=== PATIENT | male | born 1975 | race Hispanic/Latino ===

== ENCOUNTER 2023-02-26 09:46 | Inpatient (IN) | payer OTHER ==
[~2023-02-26] VITALS: Ht 172.7 cm; Wt 73.5 kg
[2023-02-26] MEDS ORDERED: 0.9%NACL 1000ML 1,000 ML IV ONE (10:30)
[2023-02-26 10:45] LABS: APPEARANCE,URINE CLEAR (CLEAR); BILIRUBIN,URINE NEGATIVE (NEGATIVE); COLOR,URINE LIGHT-YELLOW (YELLOW); GLUCOSE, URINE (UA) 500 mg/dL (NEGATIVE); KETONES,URINE NEGATIVE (NEGATIVE); LEUKOCYTE ESTERASE ,URINE NEGATIVE Leu/uL (NEGATIVE); NITRATE,URINE NEGATIVE (NEGATIVE); OCCULT BLOOD,URINE SMALL (NEGATIVE); PROTEIN,URINE 600 mg/dL (NEGATIVE); UROBILINOGEN,URINE 0.2 mg/dL (0.2-1.0)
[2023-02-26 10:48] LABS: BASOPHILS % (AUTO) 0.6 % (0.0-5.0); EOSINOPHILS % (AUTO) 4.7 % (0.0-8.0); HEMATOCRIT 29.6 % (42-54); LYMPHOCYTES % (AUTO) 28.1 % (21.0-51.0); MEAN CORPUSCULAR HEMOGLOBIN 30.4 pg (27.0-33.0); MEAN CORPUSCULAR HGB CONC 32.8 g/dL (32.0-36.0); MEAN CORPUSCULAR VOLUME 92.8 fL (79-99); MONOCYTES % (AUTO) 7.5 % (3.0-13.0); NEUTROPHILS % (AUTO) 58.7 % (40.0-77.0); PLATELET COUNT (AUTO) 235 K/uL (130-400); RED BLOOD CELL COUNT(AUTO) 3.19 MIL/uL (4.50-6.20); RED CELL DISTRIBUTION WIDTH 13.9 % (11.0-15.5); WHITE BLOOD COUNT (AUTO) 5.1 K/uL (4.8-10.8)
[2023-02-26 10:58] LABS: MUCUS,URINE RARE LPF (None Seen); RBC,URINE 0-1 /HPF (0-1); SQUAMOUS EPITHELIAL CELL,UR RARE /HPF (0-2)
[2023-02-26 11:08] LABS: ALBUMIN 1.9 g/dL (3.5-5.0); POTASSIUM 3.7 mmol/L (3.5-5.1)
[2023-02-26 11:10] LABS: CREATININE 8.7 mg/dL (0.5-1.5)
[2023-02-26] MEDS ORDERED: POTASSIUM CHLORIDE 20MEQ/100ML 100 ML IV PRN (12:00)
[2023-02-26] MEDS ORDERED: POTASSIUM CHLORIDE 10% ELIXIR 20 MEQ/15 ML UDCUP PO PRN (12:00)
[2023-02-26] MEDS ORDERED: KCL 20 MEQ ERTAB PO PRN (12:00)
[2023-02-26] MEDS: 0.9%NACL 1000ML 1,000 ML IV SCH (12:43)
[2023-02-26 15:20] VITALS: BP 181/87
[2023-02-26] MEDS ORDERED: HYDRALAZINE 20MG/ML VIAL IV PRN (18:00)
[2023-02-26 18:34] LABS: % IRON SATURATION 27.9 % (30-44)
[2023-02-26] MEDS: INSULIN HUMULIN R 100 UNIT/ML 3ML SQ SCH ×2 (19:00→21:00)
[2023-02-26 20:00] VITALS: BP 154/79
[2023-02-26] MEDS: METRONIDAZOLE 250 MG TABLET PO SCH (20:19)
[2023-02-27] VITALS (7 sets, daily range): BP systolic 130–196; BP diastolic 70–92
[2023-02-27] MEDS: 0.9%NACL 1000ML 1,000 ML IV SCH (01:24)
[2023-02-27] MEDS: METRONIDAZOLE 250 MG TABLET PO SCH ×4 (02:27→23:56)
[2023-02-27 05:18] LABS: BASOPHILS % (AUTO) 0.7 % (0.0-5.0); HEMATOCRIT 28.3 % (42-54); LYMPHOCYTES % (AUTO) 28.6 % (21.0-51.0); MEAN CORPUSCULAR HEMOGLOBIN 30.2 pg (27.0-33.0); MEAN CORPUSCULAR HGB CONC 32.9 g/dL (32.0-36.0); MEAN CORPUSCULAR VOLUME 91.9 fL (79-99); MONOCYTES % (AUTO) 5.7 % (3.0-13.0); NEUTROPHILS % (AUTO) 59.8 % (40.0-77.0); PLATELET COUNT (AUTO) 249 K/uL (130-400); RED BLOOD CELL COUNT(AUTO) 3.08 MIL/uL (4.50-6.20); RED CELL DISTRIBUTION WIDTH 13.9 % (11.0-15.5); WHITE BLOOD COUNT (AUTO) 5.4 K/uL (4.8-10.8)
[2023-02-27 05:24] LABS: HEMOGLOBIN A1C 7.4 % (4.0-6.0)
[2023-02-27 05:44] LABS: ALBUMIN 1.8 g/dL (3.5-5.0); CREATININE 7.6 mg/dL (0.5-1.5); MAGNESIUM 1.5 mg/dL (1.80-2.40); POTASSIUM 3.8 mmol/L (3.5-5.1); TOTAL PROTEIN, SERUM 5.4 g/dL (6.0-8.3)
[2023-02-27] MEDS: INSULIN HUMULIN R 100 UNIT/ML 3ML SQ SCH ×4 (06:06→21:00)
[2023-02-27] MEDS: MAGNESIUM 2GM PREMIX 50ML 50 ML IV PRN (08:58)
[2023-02-27] MEDS ORDERED: FUROSEMIDE 40MG VIAL IV ONE (10:30)
[2023-02-27] MEDS ORDERED: Vitamin B Complex/Vit C/Folic Acid PO ONE (15:00)
[2023-02-27] MEDS: AMLODIPINE 5 MG TAB PO SCH (17:23)
[2023-02-27 18:32] LABS: HEMATOCRIT 26.5 % (42-54)
[2023-02-27 18:45] LABS: ALBUMIN 1.7 g/dL (3.5-5.0); CREATININE 7.6 mg/dL (0.5-1.5)
[2023-02-27 19:00] LABS: % IRON SATURATION 21.1 % (30-44)
[2023-02-27] MEDS: ACETAMINOPHEN 325 MG TAB PO PRN (20:13)
[2023-02-27] MEDS: ONDANSETRON 4MG INJ IVP PRN (23:56)
[2023-02-28] VITALS (26 sets, daily range): BP systolic 126–181; BP diastolic 58–93
[2023-02-28 04:22] LABS: HEPATITIS B SURFACE ANTIGEN Non-Reactive (Nonreactive)
[2023-02-28 04:58] LABS: BASOPHILS % (AUTO) 0.6 % (0.0-5.0); EOSINOPHILS % (AUTO) 5.1 % (0.0-8.0); HEMATOCRIT 29.9 % (42-54); LYMPHOCYTES % (AUTO) 26.9 % (21.0-51.0); MEAN CORPUSCULAR HEMOGLOBIN 30.1 pg (27.0-33.0); MEAN CORPUSCULAR HGB CONC 32.8 g/dL (32.0-36.0); MEAN CORPUSCULAR VOLUME 91.7 fL (79-99); NEUTROPHILS % (AUTO) 60.1 % (40.0-77.0); PLATELET COUNT (AUTO) 277 K/uL (130-400); RED BLOOD CELL COUNT(AUTO) 3.26 MIL/uL (4.50-6.20); RED CELL DISTRIBUTION WIDTH 13.6 % (11.0-15.5); WHITE BLOOD COUNT (AUTO) 6.6 K/uL (4.8-10.8)
[2023-02-28 05:14] LABS: INR 0.93 (0.85-1.15); PROTHROMBIN TIME 10.3 SEC (9.6-11.6)
[2023-02-28 05:16] LABS: PARTIAL THROMBOPLASTIN TIME 31.6 SEC (26.3-35.5)
[2023-02-28 05:38] LABS: CREATININE 7.7 mg/dL (0.5-1.5); MAGNESIUM 1.9 mg/dL (1.80-2.40); PHOSPHORUS 7.2 mg/dL (2.5-4.9); POTASSIUM 4.4 mmol/L (3.5-5.1); TOTAL PROTEIN, SERUM 5.8 g/dL (6.0-8.3); URIC ACID 7.1 mg/dL (2.6-7.2)
[2023-02-28] MEDS ORDERED: HEPARIN 1,000 UNIT VIAL ONE (07:20)
[2023-02-28] MEDS ORDERED: LIDOCAINE HCL 1% MDV 50ML VIAL ONE (07:20)
[2023-02-28] MEDS: INSULIN HUMULIN R 100 UNIT/ML 3ML SQ SCH ×4 (07:22→21:00)
[2023-02-28] MEDS ORDERED: AMLO5TAB4 PO (09:27)
[2023-02-28] MEDS ORDERED: FOLI0.8T53 PO (09:27)
[2023-02-28] MEDS: METRONIDAZOLE 250 MG TABLET PO SCH ×2 (09:33→17:32)
[2023-02-28] MEDS: AMLODIPINE 5 MG TAB PO SCH (09:33)
[2023-02-28] MEDS: ACETAMINOPHEN WITH CODEINE 1 TAB TAB PO PRN ×2 (11:40→17:53)
[2023-02-28] MEDS: HEPARIN 5,000 UNIT VIAL IRRIG SCH (16:20)
[2023-03-01] VITALS (19 sets, daily range): BP systolic 129–161; BP diastolic 65–77
[2023-03-01] MEDS: ACETAMINOPHEN WITH CODEINE 1 TAB TAB PO PRN ×3 (03:57→16:30)
[2023-03-01 04:41] LABS: BASOPHILS % (AUTO) 0.7 % (0.0-5.0); EOSINOPHILS % (AUTO) 4.8 % (0.0-8.0); HEMATOCRIT 28.7 % (42-54); LYMPHOCYTES % (AUTO) 26.9 % (21.0-51.0); MEAN CORPUSCULAR HEMOGLOBIN 29.8 pg (27.0-33.0); MEAN CORPUSCULAR HGB CONC 33.1 g/dL (32.0-36.0); MONOCYTES % (AUTO) 9.4 % (3.0-13.0); NEUTROPHILS % (AUTO) 57.7 % (40.0-77.0); PLATELET COUNT (AUTO) 287 K/uL (130-400); RED BLOOD CELL COUNT(AUTO) 3.19 MIL/uL (4.50-6.20); RED CELL DISTRIBUTION WIDTH 13.5 % (11.0-15.5); WHITE BLOOD COUNT (AUTO) 5.7 K/uL (4.8-10.8)
[2023-03-01 05:21] LABS: ALBUMIN 1.9 g/dL (3.5-5.0); CREATININE 6.2 mg/dL (0.5-1.5); POTASSIUM 3.8 mmol/L (3.5-5.1); TOTAL PROTEIN, SERUM 5.7 g/dL (6.0-8.3)
[2023-03-01] MEDS: INSULIN HUMULIN R 100 UNIT/ML 3ML SQ SCH ×4 (05:23→20:52)
[2023-03-01] MEDS: METRONIDAZOLE 250 MG TABLET PO SCH ×3 (05:25→23:24)
[2023-03-01] MEDS: HEPARIN 5,000 UNIT VIAL IJ SCH ×2 (12:00→16:07)
[2023-03-01] MEDS: AMLODIPINE 5 MG TAB PO SCH (16:30)
[2023-03-02] VITALS (22 sets, daily range): BP systolic 105–164; BP diastolic 49–82
[2023-03-02 05:23] LABS: HEMATOCRIT 28.9 % (42-54); MEAN CORPUSCULAR HGB CONC 32.5 g/dL (32.0-36.0); MEAN CORPUSCULAR VOLUME 92.3 fL (79-99); PLATELET COUNT (AUTO) 250 K/uL (130-400); RED BLOOD CELL COUNT(AUTO) 3.13 MIL/uL (4.50-6.20); RED CELL DISTRIBUTION WIDTH 13.8 % (11.0-15.5); WHITE BLOOD COUNT (AUTO) 6.8 K/uL (4.8-10.8)
[2023-03-02] MEDS ORDERED: GUAIFENESIN 600 MG TABLET.ER PO PRN (05:30)
[2023-03-02 05:39] LABS: CREATININE 5.7 mg/dL (0.5-1.5); MAGNESIUM 1.8 mg/dL (1.80-2.40); PHOSPHORUS 6.9 mg/dL (2.5-4.9); POTASSIUM 4.2 mmol/L (3.5-5.1)
[2023-03-02] MEDS: INSULIN HUMULIN R 100 UNIT/ML 3ML SQ SCH ×5 (06:05→20:33)
[2023-03-02] MEDS: METRONIDAZOLE 250 MG TABLET PO SCH ×3 (06:20→21:14)
[2023-03-02] MEDS: ACETAMINOPHEN WITH CODEINE 1 TAB TAB PO PRN ×3 (06:22→21:14)
[2023-03-02 06:37] LABS: EOSINOPHILS % (MANUAL) 4 % (1-6); LYMPHOCYTES % (MANUAL) 32 % (22-44); MAN.DIFF COMMENT-IMPRESSION MANUAL DIFFERENTIAL; PLATELET MORPHOLOGY COMMENT ADEQUATE; SEGMENTED NEUTROPHILS % 64 % (40-70)
[2023-03-02] MEDS: HEPARIN 5,000 UNIT VIAL IJ SCH (11:33)
[2023-03-02] MEDS: AMLODIPINE 5 MG TAB PO SCH (12:03)
[2023-03-02] MEDS: HEPARIN 5,000 UNIT VIAL IRRIG SCH (13:21)
[2023-03-02] MEDS: DIPHENHYDRAMINE HCL 25 MG CAPSULE PO PRN (21:14)
[2023-03-02 22:10] LABS: APPEARANCE,URINE CLOUDY (CLEAR); BILIRUBIN,URINE NEGATIVE (NEGATIVE); COLOR,URINE LIGHT-YELLOW (YELLOW); GLUCOSE, URINE (UA) 500 mg/dL (NEGATIVE); KETONES,URINE NEGATIVE (NEGATIVE); LEUKOCYTE ESTERASE ,URINE NEGATIVE Leu/uL (NEGATIVE); NITRATE,URINE NEGATIVE (NEGATIVE); OCCULT BLOOD,URINE SMALL (NEGATIVE); PH,URINE 6.5 (5.0-8.0); PROTEIN,URINE 600 mg/dL (NEGATIVE); UROBILINOGEN,URINE 0.2 mg/dL (0.2-1.0)
[2023-03-02 22:17] LABS: BACTERIA,URINE FEW /HPF (None Seen); RBC,URINE 0-1 /HPF (0-1); SQUAMOUS EPITHELIAL CELL,UR RARE /HPF (0-2); YEAST,URINE BUDDING FEW /HPF (None Seen)
[2023-03-02 22:41] LABS: PROTEIN,URINE RANDOM 959.5 mg/dL (0-11.9)
[2023-03-03 00:32] VITALS: BP 126/52
[2023-03-03 04:00] VITALS: BP 114/53
[2023-03-03] MEDS: METRONIDAZOLE 250 MG TABLET PO SCH ×3 (05:47→20:56)
[2023-03-03] MEDS: INSULIN HUMULIN R 100 UNIT/ML 3ML SQ SCH ×4 (05:55→20:44)
[2023-03-03 08:00] VITALS: BP 150/71
[2023-03-03] MEDS: AMLODIPINE 5 MG TAB PO SCH (09:36)
[2023-03-03] MEDS: DIPHENHYDRAMINE HCL 25 MG CAPSULE PO PRN (09:39)
[2023-03-03 12:00] VITALS: BP 132/74
[2023-03-03] MEDS: HEPARIN 5,000 UNIT VIAL IJ SCH (12:00)
[2023-03-03] MEDS: ACETAMINOPHEN WITH CODEINE 1 TAB TAB PO PRN (12:17)
[2023-03-03 16:00] VITALS: BP 118/67
[2023-03-03 20:16] VITALS: BP 129/61
[2023-03-04] VITALS (22 sets, daily range): BP systolic 124–153; BP diastolic 60–77
[2023-03-04 04:41] LABS: HEMATOCRIT 25.6 % (42-54); MEAN CORPUSCULAR HEMOGLOBIN 30.1 pg (27.0-33.0); MEAN CORPUSCULAR VOLUME 94.1 fL (79-99); RED BLOOD CELL COUNT(AUTO) 2.72 MIL/uL (4.50-6.20); RED CELL DISTRIBUTION WIDTH 13.6 % (11.0-15.5); WHITE BLOOD COUNT (AUTO) 7.4 K/uL (4.8-10.8)
[2023-03-04 04:54] LABS: CREATININE 6.9 mg/dL (0.5-1.5); MAGNESIUM 1.7 mg/dL (1.80-2.40); PHOSPHORUS 8.5 mg/dL (2.5-4.9); POTASSIUM 4.1 mmol/L (3.5-5.1)
[2023-03-04] MEDS: METRONIDAZOLE 250 MG TABLET PO SCH ×3 (05:59→20:26)
[2023-03-04] MEDS: INSULIN HUMULIN R 100 UNIT/ML 3ML SQ SCH ×4 (05:59→20:30)
[2023-03-04] MEDS: AMLODIPINE 5 MG TAB PO SCH (08:27)
[2023-03-04] MEDS: DIPHENHYDRAMINE HCL 25 MG CAPSULE PO PRN (17:26)
[2023-03-04] MEDS: ACETAMINOPHEN 325 MG TAB PO PRN (17:27)
[2023-03-04] MEDS: MAGNESIUM 2GM PREMIX 50ML 50 ML IV PRN (18:29)
[2023-03-05 04:06] VITALS: BP 126/58
[2023-03-05 05:23] LABS: BASOPHILS % (AUTO) 0.3 % (0.0-5.0); EOSINOPHILS % (AUTO) 4.6 % (0.0-8.0); HEMATOCRIT 25.1 % (42-54); LYMPHOCYTES % (AUTO) 13.7 % (21.0-51.0); MEAN CORPUSCULAR HEMOGLOBIN 29.7 pg (27.0-33.0); MEAN CORPUSCULAR HGB CONC 32.3 g/dL (32.0-36.0); MEAN CORPUSCULAR VOLUME 91.9 fL (79-99); MONOCYTES % (AUTO) 9.5 % (3.0-13.0); NEUTROPHILS % (AUTO) 71.3 % (40.0-77.0); PLATELET COUNT (AUTO) 202 K/uL (130-400); RED BLOOD CELL COUNT(AUTO) 2.73 MIL/uL (4.50-6.20); RED CELL DISTRIBUTION WIDTH 13.4 % (11.0-15.5); WHITE BLOOD COUNT (AUTO) 6.7 K/uL (4.8-10.8)
[2023-03-05 05:33] LABS: ALBUMIN 1.9 g/dL (3.5-5.0); MAGNESIUM 2.7 mg/dL (1.80-2.40); POTASSIUM 4.2 mmol/L (3.5-5.1); TOTAL PROTEIN, SERUM 5.8 g/dL (6.0-8.3)
[2023-03-05] MEDS: INSULIN HUMULIN R 100 UNIT/ML 3ML SQ SCH ×4 (06:57→20:23)
[2023-03-05] MEDS: METRONIDAZOLE 250 MG TABLET PO SCH ×3 (06:57→20:18)
[2023-03-05 08:00] VITALS: BP 138/67
[2023-03-05] MEDS: AMLODIPINE 5 MG TAB PO SCH (09:06)
[2023-03-05 11:46] VITALS: BP 134/55
[2023-03-05] MEDS: DIPHENHYDRAMINE HCL 25 MG CAPSULE PO PRN (13:49)
[2023-03-05 16:00] VITALS: BP 131/65
[2023-03-05] MEDS: HEPARIN 5,000 UNIT VIAL IRRIG SCH (16:00)
[2023-03-05] MEDS: ACETAMINOPHEN WITH CODEINE 1 TAB TAB PO PRN (20:19)
[2023-03-05 20:21] VITALS: BP 136/66
[2023-03-05 22:58] VITALS: BP 124/53
[2023-03-06] VITALS (20 sets, daily range): BP systolic 120–154; BP diastolic 51–79
[2023-03-06 05:21] LABS: HEMATOCRIT 24.3 % (42-54); MEAN CORPUSCULAR HEMOGLOBIN 30.3 pg (27.0-33.0); MEAN CORPUSCULAR HGB CONC 32.5 g/dL (32.0-36.0); MEAN CORPUSCULAR VOLUME 93.1 fL (79-99); PLATELET COUNT (AUTO) 199 K/uL (130-400); RED BLOOD CELL COUNT(AUTO) 2.61 MIL/uL (4.50-6.20); RED CELL DISTRIBUTION WIDTH 13.4 % (11.0-15.5); WHITE BLOOD COUNT (AUTO) 6.7 K/uL (4.8-10.8)
[2023-03-06 05:34] LABS: BAND NEUTROPHILS % (MANUAL) 4 % (0-2); LYMPHOCYTES % (MANUAL) 12 % (22-44); MAN.DIFF COMMENT-IMPRESSION MANUAL DIFFERENTIAL; MONOCYTES % (MANUAL) 2 % (2-9); PLATELET MORPHOLOGY COMMENT ADEQUATE; SEGMENTED NEUTROPHILS % 82 % (40-70)
[2023-03-06 05:45] LABS: CREATININE 6.4 mg/dL (0.5-1.5); MAGNESIUM 2.7 mg/dL (1.80-2.40); PHOSPHORUS 7.9 mg/dL (2.5-4.9); POTASSIUM 4.4 mmol/L (3.5-5.1); TOTAL PROTEIN, SERUM 5.7 g/dL (6.0-8.3)
[2023-03-06] MEDS: METRONIDAZOLE 250 MG TABLET PO SCH ×3 (06:22→21:20)
[2023-03-06] MEDS: INSULIN HUMULIN R 100 UNIT/ML 3ML SQ SCH ×4 (06:23→20:19)
[2023-03-06] MEDS: AMLODIPINE 5 MG TAB PO SCH (09:00)
[2023-03-06] MEDS: ACETAMINOPHEN WITH CODEINE 1 TAB TAB PO PRN ×2 (14:23→23:15)
[2023-03-06] MEDS: ASPIRIN 81 MG EC TAB PO SCH (22:57)
[2023-03-06] MEDS: NITROGLYCERIN 0.4 MG SL TAB SL PRN ×2 (22:58→23:04)
[2023-03-07] VITALS: BP 132/56
[2023-03-07 04:35] VITALS: BP 142/69
[2023-03-07] MEDS: METRONIDAZOLE 250 MG TABLET PO SCH ×4 (05:16→21:57)
[2023-03-07 05:22] LABS: HEMATOCRIT 23.7 % (42-54); MEAN CORPUSCULAR HEMOGLOBIN 29.8 pg (27.0-33.0); MEAN CORPUSCULAR HGB CONC 32.1 g/dL (32.0-36.0); MEAN CORPUSCULAR VOLUME 92.9 fL (79-99); PLATELET COUNT (AUTO) 175 K/uL (130-400); RED BLOOD CELL COUNT(AUTO) 2.55 MIL/uL (4.50-6.20); RED CELL DISTRIBUTION WIDTH 13.6 % (11.0-15.5); WHITE BLOOD COUNT (AUTO) 4.9 K/uL (4.8-10.8)
[2023-03-07 05:38] LABS: PHOSPHORUS 7.8 mg/dL (2.5-4.9); POTASSIUM 4.7 mmol/L (3.5-5.1); TOTAL PROTEIN, SERUM 5.7 g/dL (6.0-8.3)
[2023-03-07 05:44] LABS: BAND NEUTROPHILS % (MANUAL) 8 % (0-2); LYMPHOCYTES % (MANUAL) 24 % (22-44); MONOCYTES % (MANUAL) 12 % (2-9); SEGMENTED NEUTROPHILS % 56 % (40-70)
[2023-03-07 05:45] LABS: MAN.DIFF COMMENT-IMPRESSION MANUAL DIFFERENTIAL; PLATELET MORPHOLOGY COMMENT ADEQUATE
[2023-03-07] MEDS: INSULIN HUMULIN R 100 UNIT/ML 3ML SQ SCH ×4 (05:54→20:29)
[2023-03-07] MEDS: ACETAMINOPHEN WITH CODEINE 1 TAB TAB PO PRN (06:16)
[2023-03-07 07:47] VITALS: BP 139/63
[2023-03-07] MEDS: AMLODIPINE 5 MG TAB PO SCH (08:54)
[2023-03-07] MEDS: ASPIRIN 81 MG EC TAB PO SCH (08:54)
[2023-03-07 12:00] VITALS: BP 146/62
[2023-03-07] MEDS: HEPARIN 5,000 UNIT VIAL IRRIG SCH (15:14)
[2023-03-07 16:00] VITALS: BP 130/62
[2023-03-07] MEDS ORDERED: CEFAZOLIN SODIUM 1 GM VIAL IVPB PRN ×2 (18:00→18:30)
[2023-03-07 19:49] VITALS: BP 138/66
[2023-03-08] VITALS (41 sets, daily range): BP systolic 88–159; BP diastolic 44–75
[2023-03-08 04:53] LABS: HEMATOCRIT 23.4 % (42-54); MEAN CORPUSCULAR HEMOGLOBIN 29.6 pg (27.0-33.0); MEAN CORPUSCULAR HGB CONC 32.5 g/dL (32.0-36.0); MEAN CORPUSCULAR VOLUME 91.1 fL (79-99); PLATELET COUNT (AUTO) 200 K/uL (130-400); RED BLOOD CELL COUNT(AUTO) 2.57 MIL/uL (4.50-6.20); RED CELL DISTRIBUTION WIDTH 13.5 % (11.0-15.5); WHITE BLOOD COUNT (AUTO) 6.5 K/uL (4.8-10.8)
[2023-03-08 05:08] LABS: INR 0.93 (0.85-1.15); PROTHROMBIN TIME 10.4 SEC (9.6-11.6)
[2023-03-08 05:09] LABS: BAND NEUTROPHILS % (MANUAL) 2 % (0-2); BASOPHILS % (MANUAL) 2 % (0-2); EOSINOPHILS % (MANUAL) 2 % (1-6); LYMPHOCYTES % (MANUAL) 22 % (22-44); MAN.DIFF COMMENT-IMPRESSION MANUAL DIFFERENTIAL; MONOCYTES % (MANUAL) 4 % (2-9); PARTIAL THROMBOPLASTIN TIME 30.2 SEC (26.3-35.5); PLATELET MORPHOLOGY COMMENT ADEQUATE; SEGMENTED NEUTROPHILS % 68 % (40-70)
[2023-03-08 05:11] LABS: CREATININE 6.7 mg/dL (0.5-1.5); PHOSPHORUS 8.6 mg/dL (2.5-4.9); POTASSIUM 4.8 mmol/L (3.5-5.1); TOTAL PROTEIN, SERUM 5.7 g/dL (6.0-8.3)
[2023-03-08] MEDS: INSULIN HUMULIN R 100 UNIT/ML 3ML SQ SCH ×4 (06:12→20:30)
[2023-03-08] MEDS: AMLODIPINE 5 MG TAB PO SCH (07:53)
[2023-03-08] MEDS: ASPIRIN 81 MG EC TAB PO SCH (08:10)
[2023-03-08] MEDS ORDERED: PROPOFOL 10 MG/ML 20ML VIAL IV ONE (10:10)
[2023-03-08] MEDS ORDERED: LIDOCAINE PF 100MG/5ML (2%) SYRINGE 5ML ONE (10:11)
[2023-03-08] MEDS ORDERED: FENTANYL CITRATE PF 50 MCG/1 ML 5ML AMP IV ONE (10:12)
[2023-03-08] MEDS ORDERED: HEPARIN 10,000 UNIT/10ML (1,000 UNIT/ML) VIAL ONE (10:14)
[2023-03-08] MEDS ORDERED: PROTAMINE SULFATE 10 MG/ML 5 ML VIAL ONE (10:15)
[2023-03-08] MEDS ORDERED: ONDANSETRON 4MG INJ ONE (10:16)
[2023-03-08] MEDS ORDERED: MEPERIDINE-PF 25 MG/ML SYG ONE ×2 (10:17)
[2023-03-08] MEDS ORDERED: CEFAZOLIN SODIUM 1 GM VIAL ONE (10:20)
[2023-03-08] MEDS ORDERED: EPHEDRINE SULFATE 50 MG/ML AMPULE ONE (10:20)
[2023-03-08] MEDS ORDERED: PHENYLEPHRINE HCL 10 MG/ML 1ML VIAL IV ONE (10:22)
[2023-03-08] MEDS ORDERED: 0.9% NACL 500ML IV.SOLN 500 ML IV ONE (10:24)
[2023-03-08] MEDS ORDERED: CEFAZOLIN SODIUM 2 GM VIAL IVPB ONE (11:55)
[2023-03-08] MEDS ORDERED: TRAMADOL HCL 50 MG TABLET PO PRN (12:30)
[2023-03-08] MEDS ORDERED: ACETAMINOPHEN 325 MG TAB PO PRN (12:30)
[2023-03-08] MEDS ORDERED: FENTANYL CITRATE PF 50 MCG/1 ML 2ML VIAL ONE ×2 (12:53)
[2023-03-08] MEDS ORDERED: MEPERIDINE-PF 50 MG/ML SYG ONE (13:18)
[2023-03-08] MEDS ORDERED: MORPHINE 2 MG SYG ONE (13:48)
[2023-03-08] MEDS: DIPHENHYDRAMINE HCL 25 MG CAPSULE PO PRN (14:29)
[2023-03-08] MEDS: METRONIDAZOLE 250 MG TABLET PO SCH ×2 (14:37→21:59)
[2023-03-08] MEDS: TRAMADOL HCL 50 MG TABLET PO PRN (17:12)
[2023-03-08] MEDS: HEPARIN 5,000 UNIT VIAL IRRIG SCH (21:27)
[2023-03-09 02:48] VITALS: BP 140/55
[2023-03-09] MEDS: TRAMADOL HCL 50 MG TABLET PO PRN ×3 (03:04→19:24)
[2023-03-09] MEDS: ACETAMINOPHEN WITH CODEINE 1 TAB TAB PO PRN ×2 (04:41→21:55)
[2023-03-09] MEDS: METRONIDAZOLE 250 MG TABLET PO SCH ×3 (05:00→21:54)
[2023-03-09 05:34] LABS: BASOPHILS % (AUTO) 0.6 % (0.0-5.0); EOSINOPHILS % (AUTO) 2.6 % (0.0-8.0); HEMATOCRIT 23.7 % (42-54); LYMPHOCYTES % (AUTO) 12.8 % (21.0-51.0); MEAN CORPUSCULAR HEMOGLOBIN 30.2 pg (27.0-33.0); MEAN CORPUSCULAR HGB CONC 32.1 g/dL (32.0-36.0); NEUTROPHILS % (AUTO) 75.4 % (40.0-77.0); PLATELET COUNT (AUTO) 202 K/uL (130-400); RED BLOOD CELL COUNT(AUTO) 2.52 MIL/uL (4.50-6.20); RED CELL DISTRIBUTION WIDTH 13.6 % (11.0-15.5); WHITE BLOOD COUNT (AUTO) 6.9 K/uL (4.8-10.8)
[2023-03-09 05:44] LABS: CREATININE 4.7 mg/dL (0.5-1.5); PHOSPHORUS 6.6 mg/dL (2.5-4.9); POTASSIUM 4.4 mmol/L (3.5-5.1)
[2023-03-09] MEDS: INSULIN HUMULIN R 100 UNIT/ML 3ML SQ SCH ×4 (05:59→20:01)
[2023-03-09 07:50] VITALS: BP 112/61
[2023-03-09] MEDS: ASPIRIN 81 MG EC TAB PO SCH (08:40)
[2023-03-09] MEDS: AMLODIPINE 5 MG TAB PO SCH (08:40)
[2023-03-09 11:20] VITALS: BP 136/63
[2023-03-09 16:00] VITALS: BP 139/63
[2023-03-09] MEDS: DIPHENHYDRAMINE HCL 25 MG CAPSULE PO PRN (18:25)
[2023-03-09 19:46] VITALS: BP 140/65
[2023-03-09 22:56] VITALS: BP 141/62
[2023-03-10] MEDS: BENZOCAINE/MENTH/CETYLPYRD CL 1 EACH LOZENGE MM PRN ×3 (00:02→17:43)
[2023-03-10 03:45] VITALS: BP 134/77
[2023-03-10] MEDS: METRONIDAZOLE 250 MG TABLET PO SCH ×3 (04:22→22:20)
[2023-03-10] MEDS: TRAMADOL HCL 50 MG TABLET PO PRN ×2 (04:23→19:25)
[2023-03-10] MEDS: DIPHENHYDRAMINE HCL 25 MG CAPSULE PO PRN ×2 (04:26→19:26)
[2023-03-10] MEDS: INSULIN HUMULIN R 100 UNIT/ML 3ML SQ SCH ×4 (05:54→20:41)
[2023-03-10 07:45] VITALS: BP 128/59
[2023-03-10] MEDS: ASPIRIN 81 MG EC TAB PO SCH (08:07)
[2023-03-10] MEDS: ACETAMINOPHEN WITH CODEINE 1 TAB TAB PO PRN ×2 (08:08→22:21)
[2023-03-10] MEDS: AMLODIPINE 5 MG TAB PO SCH (08:08)
[2023-03-10 11:00] VITALS: BP 140/63
[2023-03-10 16:00] VITALS: BP 124/79
[2023-03-10 19:57] VITALS: BP 135/61
[2023-03-10 23:11] VITALS: BP 141/62
[2023-03-11] VITALS (19 sets, daily range): BP systolic 120–148; BP diastolic 54–74
[2023-03-11] MEDS: TRAMADOL HCL 50 MG TABLET PO PRN (03:49)
[2023-03-11] MEDS: BENZOCAINE/MENTH/CETYLPYRD CL 1 EACH LOZENGE MM PRN (03:50)
[2023-03-11] MEDS: METRONIDAZOLE 250 MG TABLET PO SCH (04:55)
[2023-03-11] MEDS: INSULIN HUMULIN R 100 UNIT/ML 3ML SQ SCH ×4 (05:50→21:00)
[2023-03-11 06:10] LABS: BASOPHILS % (AUTO) 0.6 % (0.0-5.0); EOSINOPHILS % (AUTO) 4.6 % (0.0-8.0); HEMATOCRIT 22.6 % (42-54); LYMPHOCYTES % (AUTO) 14.3 % (21.0-51.0); MEAN CORPUSCULAR HEMOGLOBIN 30.1 pg (27.0-33.0); MEAN CORPUSCULAR HGB CONC 31.4 g/dL (32.0-36.0); MEAN CORPUSCULAR VOLUME 95.8 fL (79-99); NEUTROPHILS % (AUTO) 70.4 % (40.0-77.0); PLATELET COUNT (AUTO) 202 K/uL (130-400); RED BLOOD CELL COUNT(AUTO) 2.36 MIL/uL (4.50-6.20); RED CELL DISTRIBUTION WIDTH 13.2 % (11.0-15.5); WHITE BLOOD COUNT (AUTO) 6.7 K/uL (4.8-10.8)
[2023-03-11 06:15] LABS: CREATININE 7.8 mg/dL (0.5-1.5); POTASSIUM 4.1 mmol/L (3.5-5.1)
[2023-03-11] MEDS: ASPIRIN 81 MG EC TAB PO SCH (08:05)
[2023-03-11] MEDS: AMLODIPINE 5 MG TAB PO SCH (08:05)
[2023-03-11] MEDS: ACETAMINOPHEN WITH CODEINE 1 TAB TAB PO PRN ×2 (08:05→19:47)
[2023-03-11] MEDS: EPOETIN ALFA-EPBX (NON-ESRD) 10,000 UNIT/ML VIAL SQ SCH ×2 (12:25→15:05)
[2023-03-11] MEDS ORDERED: ALTEPLASE 2MG VIAL 2 MG/VIAL VIAL IVCATH STA (13:49)
[2023-03-11] MEDS ORDERED: EPOETIN ALFA-EPBX (NON-ESRD) 10,000 UNIT/ML VIAL SQ SCH (15:00)
[2023-03-11] MEDS: ONDANSETRON 4MG INJ IVP PRN (19:46)
[2023-03-11] MEDS ORDERED: IRON SUCROSE COMPLEX 300 MG in 0.9% NACL 250ML 250 ML IV ONE (21:00)
[2023-03-12] VITALS: BP_SYST 118; BP_SYST 144; BP_DIAS 58; BP_DIAS 69
[2023-03-12 04:00] VITALS: BP 124/54
[2023-03-12 04:51] LABS: BASOPHILS % (AUTO) 0.6 % (0.0-5.0); EOSINOPHILS % (AUTO) 4.7 % (0.0-8.0); HEMATOCRIT 23.6 % (42-54); MEAN CORPUSCULAR HEMOGLOBIN 29.6 pg (27.0-33.0); MEAN CORPUSCULAR HGB CONC 31.8 g/dL (32.0-36.0); MEAN CORPUSCULAR VOLUME 93.3 fL (79-99); MONOCYTES % (AUTO) 9.8 % (3.0-13.0); NEUTROPHILS % (AUTO) 70.6 % (40.0-77.0); PLATELET COUNT (AUTO) 243 K/uL (130-400); RED BLOOD CELL COUNT(AUTO) 2.53 MIL/uL (4.50-6.20); RED CELL DISTRIBUTION WIDTH 13.1 % (11.0-15.5); WHITE BLOOD COUNT (AUTO) 6.7 K/uL (4.8-10.8)
[2023-03-12 05:12] LABS: ALBUMIN 2.1 g/dL (3.5-5.0); CREATININE 5.8 mg/dL (0.5-1.5); MAGNESIUM 1.9 mg/dL (1.80-2.40); PHOSPHORUS 5.7 mg/dL (2.5-4.9); POTASSIUM 4.2 mmol/L (3.5-5.1); TOTAL PROTEIN, SERUM 6.2 g/dL (6.0-8.3)
[2023-03-12] MEDS: INSULIN HUMULIN R 100 UNIT/ML 3ML SQ SCH ×4 (06:06→21:00)
[2023-03-12 08:00] VITALS: BP 134/65
[2023-03-12] MEDS: ASPIRIN 81 MG EC TAB PO SCH (09:38)
[2023-03-12] MEDS: AMLODIPINE 5 MG TAB PO SCH (09:38)
[2023-03-12 12:00] VITALS: BP 140/65
[2023-03-12 16:00] VITALS: BP 129/59
[2023-03-12] MEDS: TRAMADOL HCL 50 MG TABLET PO PRN (16:16)
[2023-03-12] MEDS: HEPARIN 5,000 UNIT VIAL IRRIG SCH (16:22)
[2023-03-12 20:00] VITALS: BP 133/60
[2023-03-12] MEDS: ACETAMINOPHEN WITH CODEINE 1 TAB TAB PO PRN (20:18)
[2023-03-13] VITALS (21 sets, daily range): BP systolic 106–158; BP diastolic 60–77
[2023-03-13 05:13] LABS: BASOPHILS % (AUTO) 0.6 % (0.0-5.0); EOSINOPHILS % (AUTO) 5.5 % (0.0-8.0); HEMATOCRIT 22.3 % (42-54); LYMPHOCYTES % (AUTO) 17.9 % (21.0-51.0); MEAN CORPUSCULAR HEMOGLOBIN 29.7 pg (27.0-33.0); MEAN CORPUSCULAR HGB CONC 31.8 g/dL (32.0-36.0); MEAN CORPUSCULAR VOLUME 93.3 fL (79-99); MONOCYTES % (AUTO) 10.8 % (3.0-13.0); NEUTROPHILS % (AUTO) 64.7 % (40.0-77.0); PLATELET COUNT (AUTO) 230 K/uL (130-400); RED BLOOD CELL COUNT(AUTO) 2.39 MIL/uL (4.50-6.20); RED CELL DISTRIBUTION WIDTH 13.2 % (11.0-15.5); WHITE BLOOD COUNT (AUTO) 6.4 K/uL (4.8-10.8)
[2023-03-13 05:28] LABS: CREATININE 7.3 mg/dL (0.5-1.5); POTASSIUM 4.2 mmol/L (3.5-5.1)
[2023-03-13] MEDS: INSULIN HUMULIN R 100 UNIT/ML 3ML SQ SCH ×4 (06:00→20:54)
[2023-03-13] MEDS: TRAMADOL HCL 50 MG TABLET PO PRN (07:41)
[2023-03-13] MEDS: ASPIRIN 81 MG EC TAB PO SCH (09:10)
[2023-03-13] MEDS: BENZOCAINE/MENTH/CETYLPYRD CL 1 EACH LOZENGE MM PRN (11:06)
[2023-03-13] MEDS: EPOETIN ALFA-EPBX (NON-ESRD) 10,000 UNIT/ML VIAL SQ SCH (15:21)
[2023-03-13] MEDS: AMLODIPINE 5 MG TAB PO SCH (16:51)
[2023-03-13] MEDS: ACETAMINOPHEN WITH CODEINE 1 TAB TAB PO PRN (20:54)
[2023-03-14] MEDS: INSULIN HUMULIN R 100 UNIT/ML 3ML SQ SCH ×4 (05:32→20:05)
[2023-03-14 05:59] VITALS: BP 133/63
[2023-03-14 08:00] VITALS: BP 144/63
[2023-03-14] MEDS: ASPIRIN 81 MG EC TAB PO SCH (08:11)
[2023-03-14] MEDS: AMLODIPINE 5 MG TAB PO SCH (08:11)
[2023-03-14] MEDS: ACETAMINOPHEN WITH CODEINE 1 TAB TAB PO PRN ×3 (08:12→17:58)
[2023-03-14 11:34] VITALS: BP 146/69
[2023-03-14 13:28] LABS: HEMATOCRIT 24.1 % (42-54); MEAN CORPUSCULAR HEMOGLOBIN 30.1 pg (27.0-33.0); MEAN CORPUSCULAR VOLUME 94.1 fL (79-99); PLATELET COUNT (AUTO) 286 K/uL (130-400); RED BLOOD CELL COUNT(AUTO) 2.56 MIL/uL (4.50-6.20); RED CELL DISTRIBUTION WIDTH 13.3 % (11.0-15.5); WHITE BLOOD COUNT (AUTO) 5.6 K/uL (4.8-10.8)
[2023-03-14 13:37] LABS: CREATININE 6.2 mg/dL (0.5-1.5); POTASSIUM 3.7 mmol/L (3.5-5.1)
[2023-03-14 13:42] LABS: TOTAL PROTEIN, SERUM 5.9 g/dL (6.0-8.3)
[2023-03-14 14:15] LABS: EOSINOPHILS % (MANUAL) 3 % (1-6); LYMPHOCYTES % (MANUAL) 16 % (22-44); MAN.DIFF COMMENT-IMPRESSION MANUAL DIFFERENTIAL; MONOCYTES % (MANUAL) 7 % (2-9); PLATELET MORPHOLOGY COMMENT ADEQUATE; SEGMENTED NEUTROPHILS % 74 % (40-70)
[2023-03-14 16:00] VITALS: BP 125/62
[2023-03-14] MEDS: HEPARIN 5,000 UNIT VIAL IRRIG SCH (16:00)
[2023-03-14 19:59] VITALS: BP 130/60
[2023-03-14] MEDS: BENZOCAINE/MENTH/CETYLPYRD CL 1 EACH LOZENGE MM PRN (20:04)
[2023-03-15] VITALS (21 sets, daily range): BP systolic 125–151; BP diastolic 59–74
[2023-03-15] MEDS: ACETAMINOPHEN WITH CODEINE 1 TAB TAB PO PRN ×2 (01:49→08:57)
[2023-03-15 05:23] LABS: BASOPHILS % (AUTO) 0.6 % (0.0-5.0); EOSINOPHILS % (AUTO) 8.5 % (0.0-8.0); HEMATOCRIT 24.1 % (42-54); MEAN CORPUSCULAR HEMOGLOBIN 29.6 pg (27.0-33.0); MEAN CORPUSCULAR VOLUME 92.7 fL (79-99); MONOCYTES % (AUTO) 12.4 % (3.0-13.0); NEUTROPHILS % (AUTO) 57.2 % (40.0-77.0); PLATELET COUNT (AUTO) 333 K/uL (130-400); RED CELL DISTRIBUTION WIDTH 13.2 % (11.0-15.5); WHITE BLOOD COUNT (AUTO) 6.7 K/uL (4.8-10.8)
[2023-03-15 05:38] LABS: POTASSIUM 3.9 mmol/L (3.5-5.1)
[2023-03-15] MEDS: INSULIN HUMULIN R 100 UNIT/ML 3ML SQ SCH ×2 (05:38→11:30)
[2023-03-15] MEDS: ASPIRIN 81 MG EC TAB PO SCH (08:53)
[2023-03-15] MEDS: HEPARIN 5,000 UNIT VIAL IRRIG SCH (15:16)
[2023-03-15] MEDS: EPOETIN ALFA-EPBX (NON-ESRD) 10,000 UNIT/ML VIAL SQ SCH (16:33)
[2023-03-15] MEDS: AMLODIPINE 5 MG TAB PO SCH (16:39)
== END 2023-03-15 17:00 | disposition home or self-care (01) | DRG 673 ==
LOC: EDH 09:46 → OBSVTOIN 09:47 → EDHIP 09:47 → 4AH 15:09
PROVIDERS: ADMIT Hospitalist; ATTEND Hospitalist
PROC: 0JH63XZ Insertion of Tunneled Vascular Access Device into Chest Subcutaneous Tissue and Fascia, Percutaneous Approach (ICD-10-PCS; principal; 2023-02-28)
PROC: 02H633Z Insertion of Infusion Device into Right Atrium, Percutaneous Approach (ICD-10-PCS; 2023-02-28)
PROC: B5181ZA Fluoroscopy of Superior Vena Cava using Low Osmolar Contrast, Guidance (ICD-10-PCS; 2023-02-28)
PROC: 5A1D70Z Performance of Urinary Filtration, Intermittent, Less than 6 Hours Per Day (ICD-10-PCS; 2023-02-28)
PROC: 5A1D70Z Performance of Urinary Filtration, Intermittent, Less than 6 Hours Per Day (ICD-10-PCS; 2023-03-01)
PROC: 5A1D70Z Performance of Urinary Filtration, Intermittent, Less than 6 Hours Per Day (ICD-10-PCS; 2023-03-02)
PROC: 5A1D70Z Performance of Urinary Filtration, Intermittent, Less than 6 Hours Per Day (ICD-10-PCS; 2023-03-04)
PROC: 5A1D70Z Performance of Urinary Filtration, Intermittent, Less than 6 Hours Per Day (ICD-10-PCS; 2023-03-06)
PROC: 03180ZD Bypass Left Brachial Artery to Upper Arm Vein, Open Approach (ICD-10-PCS; 2023-03-08)
PROC: 5A1D70Z Performance of Urinary Filtration, Intermittent, Less than 6 Hours Per Day (ICD-10-PCS; 2023-03-08)
PROC: 5A1D70Z Performance of Urinary Filtration, Intermittent, Less than 6 Hours Per Day (ICD-10-PCS; 2023-03-11)
PROC: 5A1D70Z Performance of Urinary Filtration, Intermittent, Less than 6 Hours Per Day (ICD-10-PCS; 2023-03-13)
PROC: 5A1D70Z Performance of Urinary Filtration, Intermittent, Less than 6 Hours Per Day (ICD-10-PCS; 2023-03-15)
DX: N17.0 Acute kidney failure with tubular necrosis (principal); E43 Unspecified severe protein-calorie malnutrition; I12.0 Hypertensive chronic kidney disease with stage 5 chronic kidney disease or end stage renal disease; Z20.822 Contact with and (suspected) exposure to COVID-19; E11.22 Type 2 diabetes mellitus with diabetic chronic kidney disease; E86.0 Dehydration; D63.1 Anemia in chronic kidney disease; E11.51 Type 2 diabetes mellitus with diabetic peripheral angiopathy without gangrene; E78.00 Pure hypercholesterolemia, unspecified; E87.70 Fluid overload, unspecified; F17.200 Nicotine dependence, unspecified, uncomplicated; K52.9 Noninfective gastroenteritis and colitis, unspecified; Z82.49 Family history of ischemic heart disease and other diseases of the circulatory system; Z83.3 Family history of diabetes mellitus; Z99.2 Dependence on renal dialysis; Z68.24 Body mass index [BMI] 24.0-24.9, adult
CPT/HCPCS: 36415; 36558; 71045; 74176; 76770; 77001; 80048; 80053; 80061; 81001; 82040; 82270; 82565; 82570; 82652; 82728; 82948; 83036; 83540; 83550; 83690; 83735; 83880; 84100; 84156; 84484; 84520; 84550; 85014; 85018; 85025; 85027; 85045; 85610; 85730; 86140; 86701; 86704; 86706; 86850; 86900; 86901; 87340; 87390; 87520; 87635; 87804; 87880; 87902; 90935; 93005; 93971; C1750; C9803; G0378; J0690; J1644; J1756; J1815; J1940; J2001; J2175; J2270; J2370; J2405; J2704; J2720; J2997; J3010; J3475; J3490; J7030; J7040; J7050; Q0161; Q0163

== ENCOUNTER 2023-03-18 14:08 | Inpatient (IN) | payer OTHER ==
[~2023-03-18] VITALS: Ht 172.7 cm; Wt 73.3 kg
[~2023-03-18 14:08] MED LIST: AMLO5TAB4 PO; FOLI0.8T53 PO
[2023-03-18 14:40] LABS: APPEARANCE,URINE CLEAR (CLEAR); BILIRUBIN,URINE NEGATIVE (NEGATIVE); COLOR,URINE LIGHT-YELLOW (YELLOW); GLUCOSE, URINE (UA) 300 mg/dL (NEGATIVE); KETONES,URINE NEGATIVE (NEGATIVE); LEUKOCYTE ESTERASE ,URINE NEGATIVE Leu/uL (NEGATIVE); NITRATE,URINE NEGATIVE (NEGATIVE); OCCULT BLOOD,URINE NEGATIVE (NEGATIVE); PH,URINE 7.5 (5.0-8.0); PROTEIN,URINE 600 mg/dL (NEGATIVE); UROBILINOGEN,URINE 0.2 mg/dL (0.2-1.0)
[2023-03-18 14:42] LABS: BACTERIA,URINE RARE /HPF (None Seen); MUCUS,URINE RARE LPF (None Seen); RBC,URINE 0-1 /HPF (0-1)
[2023-03-18 15:14] LABS: HEMATOCRIT 28.4 % (42-54); MEAN CORPUSCULAR HEMOGLOBIN 30.5 pg (27.0-33.0); MEAN CORPUSCULAR HGB CONC 31.7 g/dL (32.0-36.0); MEAN CORPUSCULAR VOLUME 96.3 fL (79-99); RED BLOOD CELL COUNT(AUTO) 2.95 MIL/uL (4.50-6.20); RED CELL DISTRIBUTION WIDTH 14.4 % (11.0-15.5); WHITE BLOOD COUNT (AUTO) 6.4 K/uL (4.8-10.8)
[2023-03-18 15:30] LABS: ALBUMIN 2.7 g/dL (3.5-5.0); POTASSIUM 5.7 mmol/L (3.5-5.1)
[2023-03-18 15:32] LABS: CREATININE 8.7 mg/dL (0.5-1.5)
[2023-03-18] MEDS ORDERED: KAYEXALATE 15GM/60ML PO ONE (17:30)
[2023-03-18] MEDS ORDERED: HYDROCODONE/ACETAMINOPHEN 5/325 MG TAB PO ONE (18:30)
[2023-03-18 19:08] LABS: MAGNESIUM 2.1 mg/dL (1.80-2.40); PHOSPHORUS 7.5 mg/dL (2.5-4.9); THYROID STIMULATING HORMONE 1.69 uIU/mL (0.36-3.74)
[2023-03-18] MEDS ORDERED: NA ZIRCON CYCLOSIL(LOKELMA 10GM) PO ONE (20:00)
[2023-03-18] MEDS ORDERED: GLUCAGON 1MG KIT 1 MG ML IM PRN (21:00)
[2023-03-18] MEDS ORDERED: DEXTROSE 50%-WATER 50 ML DISP.SYRIN IV PRN (21:00)
[2023-03-18] MEDS ORDERED: ONDANSETRON 4MG INJ IVP PRN (21:00)
[2023-03-18] MEDS ORDERED: ACETAMINOPHEN 325 MG TAB PO PRN (21:00)
[2023-03-18] MEDS: INSULIN HUMULIN R 100 UNIT/ML 3ML SQ SCH (21:51)
[2023-03-18] MEDS: TRAMADOL HCL 50 MG TABLET PO SCH (23:20)
[2023-03-19] VITALS (17 sets, daily range): BP systolic 115–172; BP diastolic 68–80; PULSE 71–80; RESP 16–19; TEMP 97.8–97.9
[2023-03-19 05:34] LABS: HEMATOCRIT 26.8 % (42-54); MEAN CORPUSCULAR HEMOGLOBIN 29.9 pg (27.0-33.0); MEAN CORPUSCULAR HGB CONC 31.7 g/dL (32.0-36.0); MEAN CORPUSCULAR VOLUME 94.4 fL (79-99); RED BLOOD CELL COUNT(AUTO) 2.84 MIL/uL (4.50-6.20); RED CELL DISTRIBUTION WIDTH 14.4 % (11.0-15.5); WHITE BLOOD COUNT (AUTO) 6.7 K/uL (4.8-10.8)
[2023-03-19 05:50] LABS: POTASSIUM 4.7 mmol/L (3.5-5.1)
[2023-03-19 06:08] LABS: CREATININE 8.8 mg/dL (0.5-1.5)
[2023-03-19] MEDS: TRAMADOL HCL 50 MG TABLET PO SCH ×4 (06:20→23:40)
[2023-03-19] MEDS: INSULIN HUMULIN R 100 UNIT/ML 3ML SQ SCH ×4 (07:30→21:00)
[2023-03-19] MEDS: FAMOTIDINE 20MG TAB PO SCH (08:24)
[2023-03-19] MEDS ORDERED: HEPARIN 5,000 UNIT VIAL IV STA (17:32)
[2023-03-20] VITALS (23 sets, daily range): BP systolic 117–160; BP diastolic 61–77; PULSE 65–89; RESP 16–20; TEMP 97.6–97.8
[2023-03-20] MEDS: TRAMADOL HCL 50 MG TABLET PO SCH ×3 (05:27→17:47)
[2023-03-20 05:55] LABS: HEMATOCRIT 26.4 % (42-54); MEAN CORPUSCULAR HEMOGLOBIN 30.1 pg (27.0-33.0); MEAN CORPUSCULAR HGB CONC 31.8 g/dL (32.0-36.0); MEAN CORPUSCULAR VOLUME 94.6 fL (79-99); RED BLOOD CELL COUNT(AUTO) 2.79 MIL/uL (4.50-6.20); RED CELL DISTRIBUTION WIDTH 14.4 % (11.0-15.5); WHITE BLOOD COUNT (AUTO) 5.2 K/uL (4.8-10.8)
[2023-03-20 06:16] LABS: ALBUMIN 2.2 g/dL (3.5-5.0); CREATININE 5.8 mg/dL (0.5-1.5); MAGNESIUM 1.9 mg/dL (1.80-2.40); PHOSPHORUS 6.5 mg/dL (2.5-4.9); POTASSIUM 4.3 mmol/L (3.5-5.1); TOTAL PROTEIN, SERUM 6.1 g/dL (6.0-8.3)
[2023-03-20] MEDS: INSULIN HUMULIN R 100 UNIT/ML 3ML SQ SCH ×4 (07:11→20:43)
[2023-03-20] MEDS ORDERED: HEPARIN 5,000 UNIT VIAL ONE (10:36)
[2023-03-20] MEDS ORDERED: EPOETIN ALFA-EPBX (NON-ESRD) 10,000 UNIT/ML VIAL SQ SCH (12:00)
[2023-03-20] MEDS: HEPARIN 5,000 UNIT VIAL IJ SCH (12:10)
[2023-03-20] MEDS: HEPARIN 5,000 UNIT VIAL IJ PRN (19:38)
[2023-03-21] MEDS: TRAMADOL HCL 50 MG TABLET PO SCH ×5 (00:03→21:21)
[2023-03-21 03:42] VITALS: BP 153/71; PULSE 78; RESP 18
[2023-03-21] MEDS: INSULIN HUMULIN R 100 UNIT/ML 3ML SQ SCH ×6 (06:35→22:25)
[2023-03-21 08:00] VITALS: BP 154/72; PULSE 74; RESP 20
[2023-03-21] MEDS: FAMOTIDINE 20MG TAB PO SCH (09:17)
[2023-03-21] MEDS ORDERED: REGADENOSON 0.4 MG/5 ML PF SYG IVP SCH (11:30)
[2023-03-21 16:00] VITALS: BP 139/67; PULSE 81; RESP 18
[2023-03-21 19:24] VITALS: BP 159/72; PULSE 76; RESP 20
[2023-03-21 23:25] VITALS: BP 157/63; PULSE 77; RESP 20
[2023-03-22] VITALS (17 sets, daily range): BP systolic 137–170; BP diastolic 65–89; PULSE 69–89; RESP 16–20; TEMP 98–98.2
[2023-03-22] MEDS: TRAMADOL HCL 50 MG TABLET PO SCH ×2 (05:18→11:42)
[2023-03-22 05:21] LABS: BASOPHILS % (AUTO) 1.3 % (0.0-5.0); EOSINOPHILS % (AUTO) 7.7 % (0.0-8.0); HEMATOCRIT 28.2 % (42-54); LYMPHOCYTES % (AUTO) 24.5 % (21.0-51.0); MEAN CORPUSCULAR HGB CONC 31.6 g/dL (32.0-36.0); MEAN CORPUSCULAR VOLUME 94.9 fL (79-99); MONOCYTES % (AUTO) 9.5 % (3.0-13.0); NEUTROPHILS % (AUTO) 56.8 % (40.0-77.0); PLATELET COUNT (AUTO) 287 K/uL (130-400); RED BLOOD CELL COUNT(AUTO) 2.97 MIL/uL (4.50-6.20); RED CELL DISTRIBUTION WIDTH 14.1 % (11.0-15.5); WHITE BLOOD COUNT (AUTO) 6.2 K/uL (4.8-10.8)
[2023-03-22 05:27] LABS: CREATININE 6.9 mg/dL (0.5-1.5); PHOSPHORUS 7.7 mg/dL (2.5-4.9); POTASSIUM 4.6 mmol/L (3.5-5.1)
[2023-03-22] MEDS: INSULIN HUMULIN R 100 UNIT/ML 3ML SQ SCH ×2 (06:16→11:30)
[2023-03-22] MEDS ORDERED: EPOETIN ALFA-EPBX (NON-ESRD) 10,000 UNIT/ML VIAL SQ SCH (09:00)
[2023-03-22] MEDS: HEPARIN 5,000 UNIT VIAL IJ SCH (15:12)
[2023-03-22] MEDS: HEPARIN 5,000 UNIT VIAL IJ PRN (15:13)
== END 2023-03-22 15:40 | disposition home or self-care (01) | DRG 640 ==
LOC: EDH 14:08 → OBSVTOIN 14:09 → EDHIP 14:09 → 3DH 03-19 21:06
PROVIDERS: ADMIT Hospitalist; ATTEND Hospitalist
PROC: 5A1D70Z Performance of Urinary Filtration, Intermittent, Less than 6 Hours Per Day (ICD-10-PCS; principal; 2023-03-19)
PROC: 5A1D70Z Performance of Urinary Filtration, Intermittent, Less than 6 Hours Per Day (ICD-10-PCS; 2023-03-20)
PROC: 5A1D70Z Performance of Urinary Filtration, Intermittent, Less than 6 Hours Per Day (ICD-10-PCS; 2023-03-22)
DX: E87.5 Hyperkalemia (principal); N18.6 End stage renal disease; N17.9 Acute kidney failure, unspecified; I12.0 Hypertensive chronic kidney disease with stage 5 chronic kidney disease or end stage renal disease; E11.22 Type 2 diabetes mellitus with diabetic chronic kidney disease; D63.1 Anemia in chronic kidney disease; E78.00 Pure hypercholesterolemia, unspecified; F17.210 Nicotine dependence, cigarettes, uncomplicated; Z82.49 Family history of ischemic heart disease and other diseases of the circulatory system; Z99.2 Dependence on renal dialysis; Z83.3 Family history of diabetes mellitus
CPT/HCPCS: 36415; 78452; 80048; 80053; 81001; 82948; 83735; 84100; 84443; 84484; 85025; 85027; 90935; 93005; 93017; 96374; 97039; A9500; G0378; J1644; J1815; J2785

== ENCOUNTER 2023-08-26 10:18 | Emergency (ER) | payer MEDICAID, OTHER ==
[~2023-08-26] VITALS: Ht 172.7 cm; Wt 72.6 kg
[2023-08-26 13:38] VITALS: BP 147/47; PULSE 66; RESP 18; O2SAT 98
== END 2023-08-26 14:06 | disposition home or self-care (01) ==
LOC: EDH 10:18
DX: I77.0 Arteriovenous fistula, acquired (principal); M79.622 Pain in left upper arm; I10 Essential (primary) hypertension; E78.00 Pure hypercholesterolemia, unspecified; E11.9 Type 2 diabetes mellitus without complications
CPT/HCPCS: 93971

== ENCOUNTER 2024-04-25 12:25 | Emergency (ER) | payer BC ==
[~2024-04-25] VITALS: Ht 172.7 cm; Wt 74.8 kg
[2024-04-25 13:21] LABS: BASOPHILS # (AUTO) 0.08 K/uL (0.00-0.20); BASOPHILS % (AUTO) 1.3 % (0.0-5.0); EOSINOPHILS # (AUTO) 0.35 K/uL (0.00-0.70); EOSINOPHILS % (AUTO) 5.9 % (0.0-8.0); IMMATURE GRANULOCYTE ABSOLUTE 0.01 K/uL (0-1); LYMPHOCYTES # (AUTO) 1.8 K/uL (1.0-4.8); LYMPHOCYTES % (AUTO) 30.5 % (21.0-51.0); MEAN CORPUSCULAR HEMOGLOBIN 32.1 pg (27.0-33.0); MEAN CORPUSCULAR HGB CONC 32.9 g/dL (32.0-36.0); MEAN CORPUSCULAR VOLUME 97.4 fL (79-99); MONOCYTES # (AUTO) 0.5 K/uL (0.1-1.0); MONOCYTES % (AUTO) 7.9 % (3.0-13.0); NEUTROPHILS # (AUTO) 3.2 K/uL (1.8-7.7); NEUTROPHILS % (AUTO) 54.2 % (40.0-77.0); PLATELET COUNT (AUTO) 250 K/uL (130-400); RED CELL DISTRIBUTION WIDTH 14.5 % (11.0-15.5)
[2024-04-25 13:32] LABS: POTASSIUM 5.1 mmol/L (3.5-5.1)
[2024-04-25 13:36] LABS: CREATININE 9.9 mg/dL (0.5-1.3)
[2024-04-25 15:39] VITALS: BP 137/61; PULSE 66; RESP 18; O2SAT 100
== END 2024-04-25 15:42 | disposition home or self-care (01) ==
LOC: EDH 12:25
DX: R53.1 Weakness (principal); E11.22 Type 2 diabetes mellitus with diabetic chronic kidney disease; I12.0 Hypertensive chronic kidney disease with stage 5 chronic kidney disease or end stage renal disease; N18.6 End stage renal disease; D63.1 Anemia in chronic kidney disease; E78.00 Pure hypercholesterolemia, unspecified; Z79.899 Other long term (current) drug therapy; Z90.49 Acquired absence of other specified parts of digestive tract; Z99.2 Dependence on renal dialysis; Z98.890 Other specified postprocedural states
CPT/HCPCS: 36415; 80048; 85025; 93005

== ENCOUNTER 2024-09-26 02:44 | Observation (INO) | payer MEDICARE, BC ==
[2024-09-26] VITALS (20 sets, daily range): BP systolic 135–173; BP diastolic 58–75; PULSE 66–87; RESP 16–19; TEMP 98.5–98.8; O2SAT 96–97
[~2024-09-26] VITALS: Ht 172.7 cm; Wt 77.6 kg
--- NOTE | 2024-09-26 03:23 | NUR ---
PT CARE ASSUMED AT THIS TIME
[2024-09-26 03:35] LABS: BASOPHILS # (AUTO) 0.06 K/uL (0.00-0.20); BASOPHILS % (AUTO) 0.9 % (0.0-5.0); EOSINOPHILS # (AUTO) 0.41 K/uL (0.00-0.70); EOSINOPHILS % (AUTO) 6.2 % (0.0-8.0); HEMATOCRIT 33.2 % (42-54); IMMATURE GRANULOCYTE ABSOLUTE 0.02 K/uL (0-1); LYMPHOCYTES # (AUTO) 1.3 K/uL (1.0-4.8); LYMPHOCYTES % (AUTO) 19.8 % (21.0-51.0); MEAN CORPUSCULAR HEMOGLOBIN 30.7 pg (27.0-33.0); MEAN CORPUSCULAR HGB CONC 32.2 g/dL (32.0-36.0); MEAN CORPUSCULAR VOLUME 95.4 fL (79-99); MONOCYTES # (AUTO) 0.4 K/uL (0.1-1.0); NEUTROPHILS # (AUTO) 4.4 K/uL (1.8-7.7); NEUTROPHILS % (AUTO) 66.8 % (40.0-77.0); PLATELET COUNT (AUTO) 204 K/uL (130-400); RED BLOOD CELL COUNT(AUTO) 3.48 MIL/uL (4.50-6.20); WHITE BLOOD COUNT (AUTO) 6.7 K/uL (4.8-10.8)
--- NOTE | 2024-09-26 03:41 | ERN ---
General Chief Complaint: Shortness of Breath Stated Complaint: CHEST PRESSURE X 4 DAYS Time Seen by MD: 02:55 Source: patient History of Present Illness Initial Comments Patient is a 49-year-old male coming in to be evaluated for shortness of breath. Per patient he has been having shortness of breath for two weeks. He does have a history of end-stage renal disease on hemodialysis. He states that he has productive cough on and off for two weeks. Allergies: Coded Allergies: No Known Drug Allergies (Unverified Allergy, Unknown, 02/26/23) Home Meds Active Scripts Folic Acid/Vit B Complex and C (Nephro Vitamins Tablet) 0.8 Mg Tablet, 0.8 MG PO DAILY for 30 Days, #30 TAB Prov:PAT GLOVER NP 02/28/23 Amlodipine Besylate (Norvasc 5Mg Tab) 5 Mg Tablet, 10 MG PO DAILY for 30 Days, #30 TAB Prov:PAT GLOVER NP 02/28/23 Past Medical History Past Medical History: Diabetes-Type II, High Cholesterol, Hypertension, Renal Disese, Renal Failure Past Surgical History: Appendectomy, LAVA Surgical History Other: RT KNEE SX Social History Social History: Other ROS Dictation CONSTITUTIONAL: No chills, no fever, no weakness, no diaphoresis, no malaise. HEAD/FACE: No signs of trauma. EENT: No eye pain, no blurred vision, no tearing, no double vision, no ear pain, no ear discharge, no nose pain, no nasal congestion, no throat pain, no throat swelling, no mouth pain. RESPIRATORY: No cough, no orthopnea, SOB, no stridor, no wheezing. CARDIOVASCULAR: No chest pain, no edema, no palpitations, no syncope. GASTROINTESTINAL/ABDOMINAL: No abdominal pain, no constipation, no diarrhea, no nausea, no vomiting. GENITOURINARY: No abnormal discharge, no dysuria, no frequent urination, no hematuria. No complaints of pain in the genitals. MUSCULOSKELETAL: No back pain, no gout, no joint pain, no joint swelling, no muscle pain, no muscle stiffness, no neck pain. INTEGUMENTARY: No change in color, no change in hair/nails, no dryness, no l esion, no lumps, no rash. NEUROLOGICAL/PSYCH: No anxiety, not depressed, no emotional problem, no headache, no numbness, no pre-existing deficit, no history of seizures, no tremors, no weakness. HEMATOLOGIC/LYMPHATIC: Not anemic, no history of blood clots, no apparent bleeding, no bruising, glands not swollen. All Systems Negative, Except as Noted. Physical Exam Physical Exam Dictation VITAL SIGNS: Reviewed. GENERAL APPEARANCE: Alert, oriented x3, no acute distress, obese. HEAD AND FACE: Non-traumatic. EYES: PERRL, pink conjunctivas, eyelid no trauma, anterior chamber clear. EARS: Pinnas intact and no signs of trauma or erythema. Ear canals clear and no discharge. TMs no erythema. NOSE: No discharge, no bleeding. OROPHARYNX: Mouth normal, teeth no caries, tongue pink. Pharynx clear, no erythema. Tonsils no exudates, no abscesses noted. Mucous membrane moist. NECK: Supple, non-tender, no thyromegaly, no masses, no JVD, no bruits. BREAST: Deferred. CHEST: No tenderness, no crepitus, no paradoxical movement, no retractions. LUNGS: Clear, well-ventilated, symmetric, no rales, no wheezing, no rhonchi, no stridor, good breath sounds bilaterally. HEART: Regular rate, regular rhythm, no murmur, no gallops. VASCULAR: No peripheral edema. ABDOMEN: Soft, positive bowel sounds, nondistended, no guarding, nontender, no rebound, no masses no hepatomegaly, no splenomegaly, no Lima's sign, no hernias. RECTAL: Deferred. GENITAL: Deferred. NEUROLOGICAL: Normal speech, gross motor function intact, gross sensory function intact. MUSCULOSKELETAL: Neck nontender, full range of motion, back nontender, full range of motion. EXTREMITIES: Nontender, full range of motion. SKIN: Color pink, dry, no turgor, no rash, no lacerations, no abrasions, no contusions. LYMPHATICS: Deferred. Results Laboratory and Microbiology Lab and Micro Result Laboratory Tests Test 09/26/24 03:23 09/26/24 03:56 White Blood Count 6.7 K/uL (4.8-10.8) Red Blood Count 3.48 MIL/uL (4.50-6.20) L Hemoglobin 10.7 g/dL (14.0-18.0) L Hematocrit 33.2 % (42-54) L Mean Corpuscular Volume 95.4 fL (79-99) Mean Corpuscular Hemoglobin 30.7 pg (27.0-33.0) Mean Corpuscular Hemoglobin Concent 32.2 g/dL (32.0-36.0) Red Cell Distribution Width 15.0 % (11.0-15.5) Platelet Count 204 K/uL (130-400) Mean Platelet Volume 10.5 fL (7.5-10.5) Immature Granulocyte % (Auto) 0.3 % (0-1) Neutrophils (%) (Auto) 66.8 % (40.0-77.0) Lymphocytes (%) (Auto) 19.8 % (21.0-51.0) L Monocytes (%) (Auto) 6.0 % (3.0-13.0) Eosinophils (%) (Auto) 6.2 % (0.0-8.0) Basophils (%) (Auto) 0.9 % (0.0-5.0) Neutrophils # (Auto) 4.4 K/uL (1.8-7.7) Lymphocytes # (Auto) 1.3 K/uL (1.0-4.8) Monocytes # (Auto) 0.4 K/uL (0.1-1.0) Eosinophils # (Auto) 0.41 K/uL (0.00-0.70) Basophils # (Auto) 0.06 K/uL (0.00-0.20) Absolute Immature Granulocyte (auto 0.02 K/uL (0-1) Nucleated Red Blood Cells 0.0 % (0.0-0.19) Sodium Level 139 mmol/L (136-145) Potassium Level 4.5 mmol/L (3.5-5.1) Chloride Level 102 mmol/L (101-111) Carbon Dioxide Level 27 mmol/L (21-32) Blood Urea Nitrogen 41 mg/dL (7-18) H Creatinine 10.6 mg/dL (0.5-1.3) *H Glomerular Filtration Rate Calc 5 mL/min (>90) Random Glucose 110 mg/dL (70-105) H Total Calcium 8.1 mg/dL (8.5-10.1) L Total Creatine Kinase 127 U/L (21-232) B-Type Natriuretic Peptide 3960 pg/mL (0-100) H Troponin I < 0.05 ng/mL (0.00-0.05) EKG/XRAY/US/CT/MRI EKG Comment 09/26/2024 time 3:12 a.m. Ventricular rate 65 Sinus rhythm [place] [address] wave elevation or depression X-RAY Comment Chest x-ray-right lung infiltrate MDM MDM: Differential diagnosis: Right lung pneumonia, end-stage renal disease, shortness of breath, fluid overload, Rationale: Tests considered and ordered secondary to shared decision making include: labs, ECG and radiology Previous outside records reviewed: Old ER visits. Risk of complication and/or morbidity or mortality of patient management: None Medications-Per medication reconciliation Need for hospitalization: Patient does meet criteria for hospitalization. Need for emergency major/minor surgery: No There are no social concerns with this patient. Prescription drug management Prescriptions will include symptomatic care Patient's prior external medical records from other ER visits were reviewed by me as indicated. Prior testing and results from previous visits were reviewed. Prior tests were taken into account with medical decision making and resource utilization, independent historian/historians were used to obtain complete medical history. I independently interpreted the test that were performed, results were reviewed by me and considered findings on radiology if ordered. Medical management and examination interpretation discussions were had by me with other qualified healthcare professionals as indicated for the patient's care. Patient will be admitted under the care of hospitalist group for ongoing management of shortness of breath secondary to pulmonary infiltrates end-stage renal disease requiring dialysis ED Course Orders Procedure Category Date Status Time Vital Signs Per CPOE 09/26/24 Transmitted Routine 02:45 B-Type Natriuretic LAB 09/26/24 Complete Peptide 02:45 Chest 1vw RAD 09/26/24 Taken 02:45 12 Lead Ekg Tracing- EKG 09/26/24 Logged Technical 02:45 Oxygen By Nc/Pulse Ox CPOE 09/26/24 Transmitted 02:45 Maintain Iv CPOE 09/26/24 Transmitted 02:45 Iv Insertion CPOE 09/26/24 Transmitted 02:45 Cardiac Monitoring CPOE 09/26/24 Transmitted 02:45 Pulse Oximetry With CPOE 09/26/24 Transmitted Vs And Prn 02:45 Cbc With Differential LAB 09/26/24 Complete 02:45 Activity: Br W/Brp CPOE 09/26/24 Transmitted With Assist 02:45 Creatine Kinase, Total LAB 09/26/24 Complete 02:45 Urinalysis Profile LAB 09/26/24 Logged 02:45 Troponin Poc Order LAB 09/26/24 Complete Only 02:45 Bedside Troponin-I LAB.ER 09/26/24 In Process (Poc) 02:45 Basic Metabolic Panel LAB 09/26/24 Complete 02:45 Ceftriaxone 1g Vial PHA 09/26/24 In Process (Rocephine 1g Inj) 05:30 Azithromycin 500mg+Ns PHA 09/26/24 In Process 250ml (Azithromyci 05:06 Albuterol 0.083% PHA 09/26/24 In Process 2.5mg/3ml (Proventil 05:30 Dexamethasone 4mg/Ml PHA 09/26/24 In Process 1ml Vial (Dexametha 05:30 Current Medications Medications (Trade) Dose Ordered Sig/Pamela Route PRN Reason Start Time Stop Time Status Last Admin Dose Admin Azithromycin 250 ml @ 250 mls/hr Q24H STAT IVPB 09/26/24 05:06 09/26/24 06:05 Vital Signs Date Time Temp Pulse Resp B/P (MAP) Pulse Ox O2 Delivery O2 Flow Rate FiO2 09/26/24 05:01 69 20 177/79 96 Room Air* 0 21 09/26/24 03:31 97.9 66 21 170/79 95 Room Air* 0 21 09/26/24 02:53 98.1 63 16 188/90 100 Room Air 09/26/24 02:47 98.1 63 16 188/90 100 Room Air* 0 21 Critical Care Note Comments Critical Care Procedure Note Authorized and Performed by: me Total critical care time: Approximately 36 minutes Due to a high probability of clinically significant, life threatening deterioration, the patient required my highest level of preparedness to intervene emergently and I personally spent this critical care time directly and personally managing the patient. This critical care time included obtaining a history; examining the patient; pulse oximetry; ordering and review of studies; arranging urgent treatment with development of a management plan; evaluation of patient's response to treatment; frequent reassessment; and, discussions with other providers. This critical care time was performed to assess and manage the high probability of imminent, life-threatening deterioration that could result in multi-organ failure. It was exclusive of separately billable procedures and treating other patients and teaching time. Please see MDM section and the rest of the note for further information on patient assessment and treatment. DX & DISP Disposition: Inpatient Decision to Admit Time: 05:22 Departure Impression: Primary Impression: ESRD (end stage renal disease) on dialysis Additional Impression: Pneumonia involving right lung Condition: Stable Referrals: SELF,REFERRAL (PCP) PRASAD WONG MD Sep 26, 2024 03:41
[2024-09-26 03:49] LABS: POTASSIUM 4.5 mmol/L (3.5-5.1)
[2024-09-26 04:02] LABS: CREATININE 10.6 mg/dL (0.5-1.3)
[2024-09-26 04:08] LABS: B-TYPE NATRIURETIC PEPTIDE 3960 pg/mL (0-100)
--- NOTE | 2024-09-26 05:19 | HP ---
History of Present Illness Reason for Visit: Shortness of breaths History of Present Illness Mr. Monterroso is a 49-year-old male that was seen and examined today on 09/26/2024. Patient is a good historian and personal health. Patient reports that he came to the emergency department with a chief complaint of shortness of breath. Onset was two weeks ago. Location is to lungs. Duration is on and off. Character is described as difficulty catching breath. Symptoms are aggravated by not having hemodialysis last because his Lava was not functioning. There was no alleviating factors. Patient reports associated cough. CBC unremarkable, BUN 41, creatinine 10.6, BNP 3260. Emergency room physician recommended patient be admitted with a diagnosis of fluid overload. Past Medical History Patient History: Cardiovascular disease FATHER Diabetes mellitus MOTHER Unknown BROTHER, Name: DUY, Not a twin BROTHER, Name: YULISSA, Not a twin BROTHER, Name: TONY SISTER, Name: LASHON SISTER, Name: PHIL DAUGHTER, Name: RENAN PAST MEDICAL HISTORY: Diabetes High cholesterol Hypertension End-stage renal disease on hemodialysis PAST SURGICAL HISTORY: Appendectomy LAVA placement Right Permacath Broken jaw Right lower extremity orthopedic surgery PAST SOCIAL HISTORY: Admits to occasional cigarette smoking denies alcohol and illicit drug use Review of Systems General: No Fever, No Chills, No Night Sweats, No Fatigue, No Malaise, No Appetite, No Other HEENT: No Head Aches, No Visual Changes, No Eye Pain, No Ear Pain, No Dysphasia, No Sinus Congestion, No Post Nasal Drip, No Sore Throat, No Other Pulmonary: Dyspnea, Cough; No Pleuritic Chest Pain, No Other Cardiovascular: No: Chest Pain, Palpitations, Orthopnea, Paroxysmal Noc. Dyspnea, Edema, Lt Headedness, Other Gastrointestinal: No: Nausea, Vomiting, Abdominal Pain, Diarrhea, Constipation, Melena, Hematochezia, Other Genitourinary: No Dysuria, No Frequency, No Incontinence, No Hematuria, No Retention, No Other Musculoskeletal: No: other, neck pain, shoulder pain, arm pain, back pain, hand pain, leg pain, foot pain Skin: No Urticaria, No Rash, No Other Neurological: No: Weakness, Numbness, Incoordination, Change in speech, Confusion, Seizures, Other Allergies: Coded Allergies: No Known Drug Allergies (Unverified Allergy, Unknown, 02/26/23) Scheduled Amlodipine Besylate (Norvasc 5Mg Tab), 10 MG PO DAILY Folic Acid/Vit B Complex and C (Nephro Vitamins Tablet), 0.8 MG PO DAILY Exam Vital Signs Vital Signs Date Time Temp Pulse Resp B/P (MAP) Pulse Ox O2 Delivery O2 Flow Rate FiO2 09/26/24 05:01 69 20 177/79 96 Room Air* 0 21 09/26/24 03:31 97.9 General Appearance: Alert, Oriented X3, Cooperative, mild distress HEENT: Atraumatic, EOMI Respiratory: Other (Diminished air entry to bilateral lower lobes) Cardiovascular: Regular rate, Regular rhythm, Normal S1, Normal S2 Abdominal: No tenderness Extremities: No edema Skin: No significant lesion Neuro: Normal speech, Strength at 5/5 X4 ext, Sensation intact, Cranial nerves 3-12 NL Psych/Mental Status: Mental status NL, Mood NL, Thoughts/Content NL Assessment/Plan ASSESSMENT: [ Fluid Overload, POA ESRD, POA Diabetes Hypertension Hyperlipidemia] PLAN: [ Admit patient to medical-surgical floor as inpatient status. Consult patient's stave machine tender. Intake and output every shift. Weight patient daily. 1500 mL daily fluid restriction. Humulin R sliding scale 1. Hemoglobin A1c in a.m. One thousand eight hundred ADA diet Glucometer checks a.c. HS Consider resuming home medications once they are reconciled For now, Hydralazine 10 mg IV every 4 hours for systolic blood pressure greater than 160 mmHg GI prophylaxis, famotidine DVT prophylaxis, heparin ADVANCED CARE PLANNING 1. Which of the following were discussed? Hospice Care - Yes Therapeutic options - Yes Advance Directives - Yes- patient does not have any advance directives in place at this time Other discussions - patient wishes to remain a full code 2. Discussed with who? Patient 3. Voluntary nature of this service was explained to the patient? Yes 4. Amount of time spent - _ 16 minutes 5. Reviewed by Physician? (if this service was performed by NPP) Yes This document was generated in part using voice recognition software, occasional wrong word or sound alike substitutions may have occurred due to the inherent limitations of voice recognition software. Read the chart carefully and recognize using context, where the substitutions have occurred. Although every effort was made to edit the content, bookkeeping machine mechanic and typing errors may occur ATTESTATION BY PHYSICIAN I have seen and examined the patient. I reviewed the documentation, medical decision making, and treatment plan as noted by the mid-level provider above. I agree with the findings and plan of care. MICHAELA CARPIO [facility] Sep 26, 2024 05:19
[2024-09-26] MEDS ORDERED: ondanSETRON 4MG INJ IV PRN (05:30)
[2024-09-26] MEDS: ALBUTEROL 0.083% 2.5 MG/3 ML INH IH ONE (05:35)
[2024-09-26] MEDS: hydrALAZine 20MG/ML VIAL IV PRN (05:49)
[2024-09-26] MEDS: dexaMETHasone SOD PHOSPHATE 4 MG/ML 1ML VIAL IVP ONE (05:49)
[2024-09-26] MEDS: cefTRIAXone 1G VIAL IVPB ONE (05:49)
[2024-09-26] MEDS: AZITHROMYCIN 500MG+NS 250ML 250 ML IVPB STA (05:52)
[2024-09-26] MEDS: IpraTROPium/alBUTERol SULFATE 3 ML SOLUTION IH SCH (06:00)
[2024-09-26] MEDS: acetaMINOPHEN 325 MG TAB PO PRN ×2 (06:31→10:43)
--- NOTE | 2024-09-26 07:21 | NUR ---
REPORT GIVEN TO CANDIE DIEZ AT THIS TIME
[2024-09-26] MEDS: INSULIN humuLIN R 100 UNIT/ML 3ML SQ SCH (07:30)
[2024-09-26 07:45] LABS: HEMOGLOBIN A1C 5.5 % (4.0-6.0)
--- NOTE | 2024-09-26 08:08 | HMCIMG ---
PORTABLE CHEST RADIOGRAPH INDICATION: CHEST PAIN COMPARISON: 02/27/2023 FINDINGS: Heart and pulmonary vascularity are enlarged. No abnormal pulmonary parenchymal opacity or consolidation identified. No significant pleural effusion noted. No pneumothorax detected. IMPRESSION: Cardiomegaly and pulmonary vascular congestion.
[2024-09-26] MEDS: HEParin 5,000 UNIT VIAL SQ SCH (08:44)
[2024-09-26] MEDS: PANTOPrazole 40 MG TAB DR PO SCH (08:44)
[2024-09-26] MEDS: morPHINE 2 MG SYG IVP PRN (08:45)
[2024-09-26 09:03] LABS: APPEARANCE,URINE CLEAR (CLEAR); BILIRUBIN,URINE NEGATIVE (NEGATIVE); COLOR,URINE LIGHT-YELLOW (YELLOW); GLUCOSE, URINE (UA) 500 mg/dL (NEGATIVE); KETONES,URINE NEGATIVE (NEGATIVE); LEUKOCYTE ESTERASE ,URINE NEGATIVE Leu/uL (NEGATIVE); NITRATE,URINE NEGATIVE (NEGATIVE); PH,URINE 7.5 (5.0-8.0); PROTEIN,URINE 600 mg/dL (NEGATIVE); UROBILINOGEN,URINE 0.2 mg/dL (0.2-1.0)
[2024-09-26 09:06] LABS: ADD UA MICROSCOPIC YES
--- NOTE | 2024-09-26 09:15 | NUR ---
paged doctor Myles pending to call back
[2024-09-26] MEDS ORDERED: AMLO-258 PO (10:08)
[2024-09-26] MEDS ORDERED: METO-391 PO (10:08)
[2024-09-26] MEDS ORDERED: LISI40TA9 PO ×2 (10:08→10:09)
[2024-09-26] MEDS ORDERED: LOPERAMIDE 1 MG/7.5 ML UDCUP PO PRN (13:00)
--- NOTE | 2024-09-26 14:35 | CONS ---
NEPHROLOGY CONSULTATION NOTE Date/Time Patient Seen: Sep 26, 2024 1340 Reason for Consultation: Fluid overload, end-stage renal disease HISTORY OF PRESENT ILLNESS: This is a 49-year-old male with a past medical history of end-stage renal disease on hemodialysis Saturday, anemia, diabetes mellitus type 2, hypertension, and hyperlipidemia. Patient presented to the emergency room complaining of shortness of breath Patient missed dialysis session on due to left AV fistula infiltration. Chest x-ray showed cardiomegaly and pulmonary vascular congestion. Electrolytes are stable. Left AV fistula was noted. Pending venous Doppler of left arm. Patient was seen in the emergency room, continues to complain of shortness of breath No family at the bedside. Prognosis remains guarded REVIEW OF SYSTEMS: GENERAL: Positive for shortness of breath NEUROLOGIC: Negative for any blurry vision, blind spots, double vision, facial asymmetry, dysphagia, dysarthria, hemiparesis, hemisensory deficits, vertigo, ataxia. HEENT: Negative for any head trauma, neck trauma, neck stiffness, photophobia, phonophobia, sinusitis, rhinitis. CARDIAC: Negative for any chest pain, dyspnea on exertion, paroxysmal nocturnal dyspnea, peripheral edema. PULMONARY: Negative for any shortness of breath, wheezing, COPD, or TB exposure. GASTROINTESTINAL: Negative for any abdominal pain, nausea, vomiting, bright red blood per rectum, melena. GENITOURINARY: Negative for any dysuria, hematuria, incontinence. INTEGUMENTARY: Negative for any rashes, cuts, insect bites. RHEUMATOLOGIC: Negative for any joint pains, photosensitive rashes, history of vasculitis or kidney problems. HEMATOLOGIC: Negative for any abnormal bruising, frequent infections or bleeding. PAST MEDICAL HISTORY: End-stage renal disease Diabetes mellitus type 2 Hypertension Hyperlipidemia Anemia PAST SURGICAL HISTORY: Left AV fistula Appendectomy Right lower extremity orthopedic surgery PAST SOCIAL HISTORY: Current smoker Denies any use of alcohol or illicit drugs FAMILY HISTORY: Noncontributory PHYSICAL EXAM: GENERAL: Alert and oriented x 3. No acute distress. Well-nourished. EYES: EOMI. Anicteric. HENT: Moist mucous membranes. No scleral icterus. No cervical lymphadenopathy. LUNGS: Clear to auscultation bilaterally. No accessory muscle use. CARDIOVASCULAR: Regular rate and rhythm. No murmur. No JVD. ABDOMEN: Soft, non-tender and non-distended. No palpable masses. EXTREMITIES: No edema. Non-tender. SKIN: No rashes or lesions. Warm. NEUROLOGIC: No focal neurological deficits. CN II-XII grossly intact, but not individually tested. PSYCHIATRIC: Cooperative. Appropriate mood and affect. MEDICATIONS: [ ] Current Medications Medications (Trade) Dose Ordered Sig/Pamela Route PRN Reason Start Time Stop Time Status Last Admin Dose Admin Acetaminophen (TYLenol 325MG TAB) 650 mg Q6H PRN PO TEMPERATURE GREATER THAN 101.5 09/26/24 05:30 10/26/24 05:29 09/26/24 10:43 650 MG Acetaminophen (TYLenol 325MG TAB) 650 mg Q6H PRN PO MILD PAIN (1-3) 09/26/24 06:30 10/26/24 06:29 09/26/24 06:31 650 MG Albuterol (DUOneb) 1 UDVIAL [id number] IH 09/26/24 06:00 10/26/24 05:59 09/26/24 12:18 1 UDVIAL Azithromycin 250 ml @ 250 mls/hr Q24H STAT IVPB 09/26/24 05:06 09/26/24 06:05 DC 09/26/24 05:52 250 MLS/HR Heparin Sodium (Porcine) (HEParin 5,000 UNIT VIAL) 5,000 unit BID SQ 09/26/24 09:00 10/26/24 08:59 09/26/24 08:44 5,000 UNIT Hydralazine HCl (APRESOLine 20MG INJ) 10 mg Q6H PRN IV For:SBP above 160;DBP above 90 09/26/24 05:30 10/26/24 05:29 09/26/24 05:49 10 MG Insulin Human Regular (humuLIN R 100 UNIT/ML 3ML) INSULIN SLIDING SCAL... ACHS SQ 09/26/24 07:30 10/26/24 07:29 09/26/24 12:17 6 UNIT Loperamide HCl (Immodium Liquid) 2 mg BID PRN PO AFTER EACH LOOSE STOOL 09/26/24 13:00 10/26/24 12:59 Morphine Sulfate (morPHINE 2MG SYG) 2 mg Q4H PRN IVP SEVERE PAIN (7-10) 09/26/24 05:30 10/03/24 05:29 Ondansetron HCl (zoFRAN 4MG INJ) 4 mg Q6H PRN IV NAUSEA/VOMITING 09/26/24 05:30 10/26/24 05:29 Pantoprazole Sodium (PROTonix 40MG TAB) 40 mg DAILY PO 09/26/24 09:00 10/26/24 08:59 09/26/24 08:44 40 MG Vital Signs (last 8hr) Date Time Temp Pulse Resp B/P (MAP) Pulse Ox O2 Delivery O2 Flow Rate FiO2 09/26/24 13:45 87 17 132/60 96 Room Air* 0 21 09/26/24 12:18 66 18 09/26/24 10:21 76 18 165/74 96 Room Air* 0 21 09/26/24 07:34 98.2 74 17 164/74 96 Room Air* 0 21 09/26/24 06:38 73 18 177/76 98 Room Air* 0 21 DIAGNOSTICS / RADIOLOGY: REASON: CHEST PAIN ORDERING PHYSICIAN: PRASAD WONG MD PROCEDURE: CXR1VW - CHEST 1VW PORTABLE CHEST RADIOGRAPH INDICATION: CHEST PAIN COMPARISON: 02/27/2023 FINDINGS: Heart and pulmonary vascularity are enlarged. No abnormal pulmonary parenchymal opacity or consolidation identified. No significant pleural effusion noted. No pneumothorax detected. IMPRESSION: Cardiomegaly and pulmonary vascular congestion. DICTATED BY: CÉSAR BURNS MD DATE: 09/26/24 0805 LABORATORY: [ ] Hematology Labs: Test 09/26/24 03:23 Range/Units White Blood Count 6.7 4.8-10.8 K/uL Red Blood Count 3.48 L 4.50-6.20 MIL/uL Hemoglobin 10.7 L 14.0-18.0 g/dL Hematocrit 33.2 L 42-54 % Mean Corpuscular Volume 95.4 79-99 fL Mean Corpuscular Hemoglobin 30.7 27.0-33.0 pg Mean Corpuscular Hemoglobin Concent 32.2 32.0-36.0 g/dL Red Cell Distribution Width 15.0 11.0-15.5 % Platelet Count 204 130-400 K/uL Mean Platelet Volume 10.5 7.5-10.5 fL Immature Granulocyte % (Auto) 0.3 0-1 % Neutrophils (%) (Auto) 66.8 40.0-77.0 % Lymphocytes (%) (Auto) 19.8 L 21.0-51.0 % Monocytes (%) (Auto) 6.0 3.0-13.0 % Eosinophils (%) (Auto) 6.2 0.0-8.0 % Basophils (%) (Auto) 0.9 0.0-5.0 % Neutrophils # (Auto) 4.4 1.8-7.7 K/uL Lymphocytes # (Auto) 1.3 1.0-4.8 K/uL Monocytes # (Auto) 0.4 0.1-1.0 K/uL Eosinophils # (Auto) 0.41 0.00-0.70 K/uL Basophils # (Auto) 0.06 0.00-0.20 K/uL Absolute Immature Granulocyte (auto 0.02 0-1 K/uL Nucleated Red Blood Cells 0.0 0.0-0.19 % Chemistry Labs: Test 09/26/24 11:51 09/26/24 03:56 09/26/24 03:23 Range/Units Whole Blood Glucose 209 #H 70-110 MG/DL Troponin I < 0.05 0.00-0.05 ng/mL Sodium Level 139 136-145 mmol/L Potassium Level 4.5 3.5-5.1 mmol/L Chloride Level 102 101-111 mmol/L Carbon Dioxide Level 27 21-32 mmol/L Blood Urea Nitrogen 41 H 7-18 mg/dL Creatinine 10.6 *H 0.5-1.3 mg/dL Glomerular Filtration Rate Calc 5 >90 mL/min Random Glucose 110 H 70-105 mg/dL Hemoglobin A1c 5.5 4.0-6.0 % Estimated Average Glucose (eAG) 111 70-126 mg/dL Total Calcium 8.1 L 8.5-10.1 mg/dL Total Creatine Kinase 127 21-232 U/L B-Type Natriuretic Peptide 3960 H 0-100 pg/mL ASSESSMENT: Patient has increasing shortness of breath with underlying diabetic nephropathy end-stage renal disease missing dialysis and has infiltration of the AV fistula Fluid overload Left AV fistula infiltration End-stage renal disease Anemia Diabetes mellitus type II hypertension Hyperlipidemia PLAN: Labs and Diagnostics/ Radiology personally reviewed and interpreted by myself and supervising physician We have reviewed dialysis and external records in detail Dialysis planned for today, may use AV access. Start Nephro-Leah daily 1.5 L fluid restriction Continue to monitor H&H Epogen on dialysis days, as needed Continue with frequent monitoring of renal function, anemia, and electrolytes Order CBC, BMP, and electrolytes in the morning May use Dilaudid 0.5 mg IV every 6 hours as needed for severe pain Monitor blood pressure adjust medication doses as needed Maintain normotensive state Strict intake, output, and daily weight should be monitored Please renally adjust medications. Avoid nephrotoxics and nonsteroidal drugs. We will continue to monitor the patient closely We have discussed with the other team physicians in detail about the care plan Thank you for allowing us to participate in the care of this patient ATTESTATION BY PHYSICIAN I have seen and examined the patient. I reviewed the documentation, medical decision making, and treatment plan as noted by the mid-level provider above. I agree with the findings and plan of care. DARWIN MAGAÑA MD, [facility] Sep 26, 2024 14:35 DARWIN MAGAÑA MD Sep 26, 2024 21:32
--- NOTE | 2024-09-26 15:08 | HMCIMG ---
ULTRASOUND VENOUS DOPPLER LEFT UPPER EXTREMITY INDICATION: Swelling. TECHNIQUE: Routine grayscale and color and spectral Doppler ultrasound of the left upper extremity veins performed in real-time, and images subsequently made available for review. COMPARISON: None FINDINGS: Normal compression, color, and vascular antegrade flow identified within the axillary vein, brachial vein, cephalic vein, and basilic vein. Normal flow and color demonstrated within the left subclavian vein. No evidence for an intraluminal thrombus. No soft tissue abnormalities demonstrated. AV of anastomosis = 412 m/sec, brachial artery = 261 cm/sec; AV fistula is patent. IMPRESSION: No evidence for left upper extremity venous thrombosis. Patent AV fistula.
[2024-09-26] MEDS: 0.9%NACL 1000ML 1,000 ML IV SCH (16:45)
--- NOTE | 2024-09-26 21:40 | EKG ---
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
--- NOTE | 2024-09-27 02:43 | PN ---
NEPHROLOGY NOTE SUBJECTIVE: This patient has renal failure and anemia. The patient has infiltration of the AV fistula, underlying diabetic nephropathy, hypertension, shortness of breath and underlying fluid overload. The patient has multiple other comorbidities. Has been evaluated, was seen several times today. The patient has no other ____. His blood pressure has been intermittently high. PHYSICAL EXAMINATION: VITAL SIGNS: Blood pressure is 170/67, pulse is 80, respiratory rate is 16. HEENT: Head is atraumatic, normocephalic. Pupils are round and reactive. Sclerae are anicteric. Conjunctivae not pale. Oral mucosa is not dry. NECK: Supple. No masses, bruits. Thyroid is palpable. Neck has no bruits. CHEST: Shows equal thoracic percussion note being resonant in all areas. CARDIAC: Regular rhythm. No rub. No S3, S4. No parasternal heave. ABDOMEN: No guarding or tenderness. Bowel sounds are normoactive. No free fluid. EXTREMITIES: No edema. NEUROLOGIC: Unchanged. PROBLEMS: Renal failure, anemia, fluid overload, shortness of breath, infiltration of the AV access, left arm pain and swelling. PLAN: To continue monitoring. Follow up on renal function. Dialysis will continue. Seen for dialysis and seen multiple times. I have discussed with other team members. We will continue with other supportive care. The patient was evaluated and seen several times today, seen on dialysis also. TID: [id number] RECEIPT: [id number]
--- NOTE | 2024-09-27 07:15 | NUR ---
REPORT GIVEN TO MANISH DIEZ AT THIS TIME
[2024-09-27 07:27] LABS: BASOPHILS # (AUTO) 0.05 K/uL (0.00-0.20); BASOPHILS % (AUTO) 0.6 % (0.0-5.0); EOSINOPHILS # (AUTO) 0.17 K/uL (0.00-0.70); EOSINOPHILS % (AUTO) 2.1 % (0.0-8.0); HEMATOCRIT 26.6 % (42-54); IMMATURE GRANULOCYTE ABSOLUTE 0.02 K/uL (0-1); LYMPHOCYTES # (AUTO) 2.1 K/uL (1.0-4.8); MEAN CORPUSCULAR HEMOGLOBIN 31.1 pg (27.0-33.0); MEAN CORPUSCULAR HGB CONC 33.8 g/dL (32.0-36.0); MONOCYTES # (AUTO) 0.6 K/uL (0.1-1.0); MONOCYTES % (AUTO) 7.8 % (3.0-13.0); NEUTROPHILS # (AUTO) 5.1 K/uL (1.8-7.7); NEUTROPHILS % (AUTO) 63.3 % (40.0-77.0); PLATELET COUNT (AUTO) 188 K/uL (130-400); RED BLOOD CELL COUNT(AUTO) 2.89 MIL/uL (4.50-6.20); WHITE BLOOD COUNT (AUTO) 8.1 K/uL (4.8-10.8)
[2024-09-27 07:58] LABS: CREATININE 7.3 mg/dL (0.5-1.3); MAGNESIUM 1.9 mg/dL (1.80-2.40); PHOSPHORUS 6.5 mg/dL (2.5-4.9); POTASSIUM 3.1 mmol/L (3.5-5.1)
[2024-09-27] MEDS: Vitamin B Complex/Vit C/Folic Acid PO SCH (10:23)
--- NOTE | 2024-09-27 12:19 | DS ---
Discharge Summary Hospital Course Summary: 49 YO male who has been on HD x 2 yrs and there was a problem accessing his L AV graft for ESRD on and no dialysis could be done. He was admitted earlier this am for sob and "fluid overload" and underwent HD w/o a problem with 2.7L of ultrafiltration taken off. pt sob resolved and nephrology, dr herndon agreed he could be d/c'd home from his standpoint. pt currently w/o sx's of cp or sob. He does have a cough for which he has been using a cough syrup at home. He is in agreement to be dc'd home to continue HD ,, Sat and to continue home meds. Panel Instrument Repairer(s): nephrology, dr herndon Procedure(s): hemodialysis Assessment/Plan: ASSESSMENT: [ fluid overload ESRD on HD w/ skipped session ] PLAN: [ d/c home ] Home Medications: Reported Medications Lisinopril (Lisinopril) 40 Mg Tablet, 1 TAB PO HS for 30 Days, #30 TAB 0 Refills 09/26/24 Metoprolol Succinate (Metoprolol Succinate) 50 Mg Tab.er.24h, 1 TAB PO DAILY for 30 Days, #30 TAB 0 Refills 09/26/24 Amlodipine Besylate (Amlodipine Besylate) 10 Mg Tablet, 10 MG PO HS for 30 Days, #30 TAB 0 Refills 09/26/24 Discontinued Reported Medications Lisinopril (Lisinopril) 40 Mg Tablet, 1 TAB PO DAILY for 30 Days, #30 TAB 0 Refills 09/26/24 Discontinued Scripts Folic Acid/Vit B Complex and C (Nephro Vitamins Tablet) 0.8 Mg Tablet, 0.8 MG PO DAILY for 30 Days, #30 TAB Prov:PAT GLOVER NP 02/28/23 Amlodipine Besylate (Norvasc 5Mg Tab) 5 Mg Tablet, 10 MG PO DAILY for 30 Days, #30 TAB Prov:PAT GLOVER NP 02/28/23 Time spent arranging discharge: 1-30 minutes MYRNA MORENO MD Sep 27, 2024 12:19
[2024-09-27 12:31] VITALS: BP 139/50; PULSE 89; RESP 16; TEMP 98.1; O2SAT 97
--- NOTE | 2024-09-27 13:01 | NUR ---
PT STABLE NO DISTRESS VITALS WNL NO C/O PAIN PT GIVEN INSTRUCTIONS FOR HOME. WILL RESUME DIALYSIS SCHEDULED PER DR. MAGAÑA. PT IV D/C CATHETER INTACT, PT DRIVE BY HOME.
--- NOTE | 2024-09-27 13:03 | PN ---
NEPHROLOGY PROGRESS NOTE Date/Time Patient Seen: Sep 27, 2024 Reason for Consultation: 13:01 SUBJECTIVE: This is a 49-year-old male with a past medical history of end-stage renal disease on hemodialysis Saturday, anemia, diabetes mellitus type 2, hypertension, and hyperlipidemia. Patient presented to the emergency room complaining of shortness of breath Patient missed dialysis session on due to left AV fistula infiltration. Chest x-ray showed cardiomegaly and pulmonary vascular congestion. He tolerated dialysis well yesterday without difficulty via AV fistula. He was see in the emergency room, in no acute distress No family at the bedside. Prognosis remains guarded REVIEW OF SYSTEMS: GENERAL: Positive for shortness of breath NEUROLOGIC: Negative for any blurry vision, blind spots, double vision, facial asymmetry, dysphagia, dysarthria, hemiparesis, hemisensory deficits, vertigo, ataxia. HEENT: Negative for any head trauma, neck trauma, neck stiffness, photophobia, phonophobia, sinusitis, rhinitis. CARDIAC: Negative for any chest pain, dyspnea on exertion, paroxysmal nocturnal dyspnea, peripheral edema. PULMONARY: Negative for any shortness of breath, wheezing, COPD, or TB exposure. GASTROINTESTINAL: Negative for any abdominal pain, nausea, vomiting, bright red blood per rectum, melena. GENITOURINARY: Negative for any dysuria, hematuria, incontinence. INTEGUMENTARY: Negative for any rashes, cuts, insect bites. RHEUMATOLOGIC: Negative for any joint pains, photosensitive rashes, history of vasculitis or kidney problems. HEMATOLOGIC: Negative for any abnormal bruising, frequent infections or bleeding. PHYSICAL EXAM: GENERAL: Alert and oriented x 3. No acute distress. Well-nourished. EYES: EOMI. Anicteric. HENT: Moist mucous membranes. No scleral icterus. No cervical lymphadenopathy. LUNGS: Clear to auscultation bilaterally. No accessory muscle use. CARDIOVASCULAR: Regular rate and rhythm. No murmur. No JVD. ABDOMEN: Soft, non-tender and non-distended. No palpable masses. EXTREMITIES: No edema. Non-tender. SKIN: No rashes or lesions. Warm. NEUROLOGIC: No focal neurological deficits. CN II-XII grossly intact, but not individually tested. PSYCHIATRIC: Cooperative. Appropriate mood and affect. LABORATORY: [ ] Hematology Labs: Test 09/27/24 07:12 Range/Units White Blood Count 8.1 4.8-10.8 K/uL Red Blood Count 2.89 L 4.50-6.20 MIL/uL Hemoglobin 9.0 L 14.0-18.0 g/dL Hematocrit 26.6 L 42-54 % Mean Corpuscular Volume 92.0 79-99 fL Mean Corpuscular Hemoglobin 31.1 27.0-33.0 pg Mean Corpuscular Hemoglobin Concent 33.8 32.0-36.0 g/dL Red Cell Distribution Width 15.0 11.0-15.5 % Platelet Count 188 130-400 K/uL Mean Platelet Volume 10.8 H 7.5-10.5 fL Immature Granulocyte % (Auto) 0.2 0-1 % Neutrophils (%) (Auto) 63.3 40.0-77.0 % Lymphocytes (%) (Auto) 26.0 21.0-51.0 % Monocytes (%) (Auto) 7.8 3.0-13.0 % Eosinophils (%) (Auto) 2.1 0.0-8.0 % Basophils (%) (Auto) 0.6 0.0-5.0 % Neutrophils # (Auto) 5.1 1.8-7.7 K/uL Lymphocytes # (Auto) 2.1 1.0-4.8 K/uL Monocytes # (Auto) 0.6 0.1-1.0 K/uL Eosinophils # (Auto) 0.17 0.00-0.70 K/uL Basophils # (Auto) 0.05 0.00-0.20 K/uL Absolute Immature Granulocyte (auto 0.02 0-1 K/uL Nucleated Red Blood Cells 0.0 0.0-0.19 % Chemistry Labs: Test 09/27/24 12:17 09/27/24 07:12 09/26/24 03:56 09/26/24 03:23 Range/Units Whole Blood Glucose 165 #H 70-110 MG/DL Sodium Level 142 136-145 mmol/L Potassium Level 3.1 L 3.5-5.1 mmol/L Chloride Level 102 101-111 mmol/L Carbon Dioxide Level 28 21-32 mmol/L Blood Urea Nitrogen 28 H 7-18 mg/dL Creatinine 7.3 H 0.5-1.3 mg/dL Glomerular Filtration Rate Calc 8 >90 mL/min Random Glucose 104 70-105 mg/dL Total Calcium 7.9 L 8.5-10.1 mg/dL Phosphorus Level 6.5 H 2.5-4.9 mg/dL Magnesium Level 1.90 1.80-2.40 mg/dL Troponin I < 0.05 0.00-0.05 ng/mL Hemoglobin A1c 5.5 4.0-6.0 % Estimated Average Glucose (eAG) 111 70-126 mg/dL Total Creatine Kinase 127 21-232 U/L B-Type Natriuretic Peptide 3960 H 0-100 pg/mL DIAGNOSTICS / RADIOLOGY: REASON: LEFT UPPER ARM SWELLING ORDERING PHYSICIAN: JOSÉ ANTONIO KUMAR I CUP TRIMMING MACHINE OPERATOR PROCEDURE: VENOUS UNI - US VENOUS DOPPLER UNILATERAL ULTRASOUND VENOUS DOPPLER LEFT UPPER EXTREMITY INDICATION: Swelling. TECHNIQUE: Routine grayscale and color and spectral Doppler ultrasound of the left upper extremity veins performed in real-time, and images subsequently made available for review. COMPARISON: None FINDINGS: Normal compression, color, and vascular antegrade flow identified within the axillary vein, brachial vein, cephalic vein, and basilic vein. Normal flow and color demonstrated within the left subclavian vein. No evidence for an intraluminal thrombus. No soft tissue abnormalities demonstrated. AV of anastomosis = 412 m/sec, brachial artery = 261 cm/sec; AV fistula is patent. IMPRESSION: No evidence for left upper extremity venous thrombosis. Patent AV fistula. DICTATED BY: CÉSAR BURNS MD DATE: 09/26/24 1502 REASON: CHEST PAIN ORDERING PHYSICIAN: PRASAD WONG MD PROCEDURE: CXR1VW - CHEST 1VW PORTABLE CHEST RADIOGRAPH INDICATION: CHEST PAIN COMPARISON: 02/27/2023 FINDINGS: Heart and pulmonary vascularity are enlarged. No abnormal pulmonary parenchymal opacity or consolidation identified. No significant pleural effusion noted. No pneumothorax detected. IMPRESSION: Cardiomegaly and pulmonary vascular congestion. DICTATED BY: CÉSAR BURNS MD DATE: 09/26/24 0805 ASSESSMENT: Patient has increasing shortness of breath with underlying diabetic nephropathy end-stage renal disease missing dialysis and has infiltration of the AV fistula Fluid overload Left AV fistula infiltration End-stage renal disease Anemia Diabetes mellitus type II hypertension Hyperlipidemia PLAN: Labs and Diagnostics/ Radiology personally reviewed and interpreted by myself and supervising physician We have reviewed dialysis and external records in detail From Nephrology standpoint, patient may be discharged Follow up in outpatient clinic on Saturday for hemodialysis 1.5 L fluid restriction Monitor blood pressure adjust medication doses as needed Maintain normotensive state Strict intake, output, and daily weight should be monitored Please renally adjust medications. Avoid nephrotoxics and nonsteroidal drugs. We will continue to monitor the patient closely We have discussed with the other team physicians in detail about the care plan ATTESTATION BY PHYSICIAN I have seen and examined the patient. I reviewed the documentation, medical decision making, and treatment plan as noted by the mid-level provider above. I agree with the findings and plan of care. DARWIN MAGAÑA MD, ELIZABETH CUP TRIMMING MACHINE OPERATOR Sep 27, 2024 13:03
--- NOTE | 2024-09-27 13:14 | NUR ---
DISCHARGE Patient ready to discharge from ED without admission to inpatient unit per Dr. Dinero. Discharge paperwork completed. DC finalized and printed by ED nurse Ayala RN.
[2024-10-01 09:48] LABS: HEPATITIS B SURFACE ANTIBODY Positive (Reactive); HEPATITIS B SURFACE ANTIGEN Non-Reactive (Nonreactive)
[2024-10-01 09:49] LABS: HEPATITIS B CORE AB TOTAL Non-Reactive (Nonreactive)
== END 2024-09-27 13:01 | disposition home or self-care (01) ==
LOC: EDH 02:44 → INTOOBSV 05:11 → EDHIP 05:11
PROVIDERS: ADMIT Internal Medicine; ATTEND Internal Medicine
DX: I12.0 Hypertensive chronic kidney disease with stage 5 chronic kidney disease or end stage renal disease (principal); E11.22 Type 2 diabetes mellitus with diabetic chronic kidney disease; N18.6 End stage renal disease; T82.590A Other mechanical complication of surgically created arteriovenous fistula, initial encounter; E87.70 Fluid overload, unspecified; D63.1 Anemia in chronic kidney disease; E78.5 Hyperlipidemia, unspecified; J18.9 Pneumonia, unspecified organism; M79.89 Other specified soft tissue disorders; R60.0 Localized edema; F17.210 Nicotine dependence, cigarettes, uncomplicated; Z90.49 Acquired absence of other specified parts of digestive tract; Z99.2 Dependence on renal dialysis; Z79.899 Other long term (current) drug therapy; Y92.89 Other specified places as the place of occurrence of the external cause
CPT/HCPCS: 96372 ×2; 96365; 96375 ×2; 99291; 93005; 83036; 82550; 84484; 80048 ×2; 83880; 85025 ×2; 82948 ×6; 86706; 87340; 86704; 81001; 36415 ×2; 71045; 93971; 94640; 90935; 96376; 83735; 84100; J1100; G0378 ×3; J2270 ×2; J0360 ×2; J0696; J0456; J1644 ×3; 94664; G0257

== ENCOUNTER 2025-05-17 12:03 | Emergency (ER) | payer MEDICARE, OTHER ==
[~2025-05-17] VITALS: Ht 172.7 cm; Wt 71.3 kg
[~2025-05-17 12:03] MED LIST changes: +AMLO-258 PO; -AMLO5TAB4 PO; -FOLI0.8T53 PO; +LISI40TA15 PO; +METO-391 PO
--- NOTE | 2025-05-17 12:27 | EKG ---
[facility] Test Date: 2025-05-17 Test Time: 12:22:14 Pat Name: ANAY DRAKE Department: [facility] Room: Gender: M Serging Machine Operator Automatic: 08 : 1975 Requested By: PRASAD WONG Order Number: [id number] Reading MD: Robbie Fang Measurements Intervals [place] Rate: 79 P: 59 RI: 331 QRS: -2 QRSD: 99 T: 121 QT: 450 QTc: 471 Interpretive Statements Sinus rhythm Paired ventricular premature complexes Prolonged RI interval Abnormal T, consider ischemia, lateral leads Compared to ECG 09/26/2024 03:12:36 Ventricular premature complex(es) now present T-wave abnormality now present Possible ischemia now present Right-axis deviation no longer present Myocardial infarct finding no longer present Electronically Signed On 05-18-2025 07:28:36 CDT by Robbie Fang Please click the below link to view image of tracing.
--- NOTE | 2025-05-17 12:30 | ERN ---
General Chief Complaint: Shoulder Injury/Pain Stated Complaint: SHOULDER PAIN Time Seen by MD: 12:05 Source: patient History of Present Illness Initial Comments Patient is a 49-year-old male coming in complaining of right deltoid pain. Per patient he states that his right shoulder has been hurting ever since he woke up. He states that the pain waxes and wanes in his present sometimes has been out with a times. Allergies: Coded Allergies: No Known Drug Allergies (Unverified Allergy, Unknown, 02/26/23) Home Meds Reported Medications Lisinopril (Lisinopril) 40 Mg Tablet, 1 TAB PO HS for 30 Days, #30 TAB 0 Refills 09/26/24 Metoprolol Succinate (Metoprolol Succinate) 50 Mg Tab.er.24h, 1 TAB PO DAILY for 30 Days, #30 TAB 0 Refills 09/26/24 Amlodipine Besylate (Amlodipine Besylate) 10 Mg Tablet, 10 MG PO HS for 30 Days, #30 TAB 0 Refills 09/26/24 Past Medical History Past Medical History: Diabetes-Type II, High Cholesterol, Hypertension, Renal Failure Past Surgical History: LAVA Surgical History Other: RT KNEE SX Social History Social History: Other ROS Dictation CONSTITUTIONAL: No chills, no fever, no weakness, no diaphoresis, no malaise. HEAD/FACE: No signs of trauma. EENT: No eye pain, no blurred vision, no tearing, no double vision, no ear pain, no ear discharge, no nose pain, no nasal congestion, no throat pain, no throat swelling, no mouth pain. RESPIRATORY: No cough, no orthopnea, no SOB, no stridor, no wheezing. CARDIOVASCULAR: No chest pain, no edema, no palpitations, no syncope. GASTROINTESTINAL/ABDOMINAL: No abdominal pain, no constipation, no diarrhea, no nausea, no vomiting. GENITOURINARY: No abnormal discharge, no dysuria, no frequent urination, no hematuria. No complaints of pain in the genitals. MUSCULOSKELETAL: No back pain, no gout, no joint pain, no joint swelling, muscle pain, no muscle stiffness, no neck pain. INTEGUMENTARY: No change in color, no change in hair/nails, no dryness, no lesion, no lumps, no rash. NEUROLOGICAL/PSYCH: No anxiety, not depressed, no emotional problem, no headache, no numbness, no pre-existing deficit, no history of seizures, no tremors, no weakness. HEMATOLOGIC/LYMPHATIC: Not anemic, no history of blood clots, no apparent bleeding, no bruising, glands not swollen. All Systems Negative, Except as Noted. Physical Exam Physical Exam Dictation VITAL SIGNS: Reviewed. GENERAL APPEARANCE: Alert, oriented x3, no acute distress, obese. HEAD AND FACE: Non-traumatic. EYES: PERRL, pink conjunctivas, eyelid no trauma, anterior chamber clear. EARS: Pinnas intact and no signs of trauma or erythema. Ear canals clear and no discharge. TMs no erythema. NOSE: No discharge, no bleeding. OROPHARYNX: Mouth normal, teeth no caries, tongue pink. Pharynx clear, no erythema. Tonsils no exudates, no abscesses noted. Mucous membrane moist. NECK: Supple, non-tender, no thyromegaly, no masses, no JVD, no bruits. BREAST: Deferred. CHEST: No tenderness, no crepitus, no paradoxical movement, no retractions. LUNGS: Clear, well-ventilated, symmetric, no rales, no wheezing, no rhonchi, no stridor, good breath sounds bilaterally. HEART: Regular rate, regular rhythm, no murmur, no gallops. VASCULAR: No peripheral edema. ABDOMEN: Soft, positive bowel sounds, nondistended, no guarding, nontender, no rebound, no masses no hepatomegaly, no splenomegaly, no Lima's sign, no hernias. RECTAL: Deferred. GENITAL: Deferred. NEUROLOGICAL: Normal speech, gross motor function intact, gross sensory function intact. MUSCULOSKELETAL: Neck nontender, full range of motion, back nontender, full range of motion. EXTREMITIES: Nontender, full range of motion. Right deltoid tenderness on palpation SKIN: Color pink, dry, no turgor, no rash, no lacerations, no abrasions, no contusions. LYMPHATICS: Deferred. Results Laboratory and Microbiology Labs Reviewed?: Yes EKG/XRAY/US/CT/MRI EKG Comment 05/17/2025 time 12:22 p.m. Ventricular rate [address] wave elevation or depression X-RAY Comment Shoulder x-ray-NAD MDM MDM: Differential diagnosis: Deltoid strain, NSTEMI, Rationale: Tests considered and ordered secondary to shared decision making include: Previous outside records reviewed: Old ER visits. Risk of complication and/or morbidity or mortality of patient management: None Medications-Per medication reconciliation Need for hospitalization: Patient does not meet criteria for hospitalization. Need for emergency major/minor surgery: No Patient is a 49-year-old male coming in complaining of right shoulder tenderness. Per patient he was laying down in bed woke up with this discomfort. On physical exam there is tenderness to palpation of the right deltoid region. X-ray did not disclose acute findings EKG was performed due to the proximity of the chest. EKG did not disclose acute findings. Sling will be placed I did advised him appropriate follow up with PCP for long-term management. ED Course Orders Procedure Category Date Status Time Shoulder Comp 2+Vws Rt RAD 05/17/25 Taken 12:16 12 Lead Ekg Tracing- EKG 05/17/25 Complete Technical 12:16 Ketorolac PHA 05/17/25 Complete Tromethamine 15mg/Ml 13:00 *Nursing CPOE 05/17/25 Transmitted Communication: 12:59 Ketorolac PHA 05/17/25 Complete Tromethamine 15mg/Ml 13:08 Sling ERIS 05/17/25 In Process 13:18 Current Medications Medications (Trade) Dose Ordered Sig/Pamela Route PRN Reason Start Time Stop Time Status Last Admin Dose Admin Ketorolac Tromethamine (toRADol) 15 mg ONCE ONCE IM 05/17/25 13:00 05/17/25 13:01 DC 05/17/25 13:00 Ketorolac Tromethamine (toRADol) 15 mg STK-MED ONCE .ROUTE 05/17/25 13:08 05/17/25 13:08 DC Vital Signs Date Time Temp Pulse Resp B/P (MAP) Pulse Ox O2 Delivery O2 Flow Rate FiO2 05/17/25 12:19 98.4 66 18 134/58 98 Room Air* 0 21 05/17/25 12:05 98.4 66 18 134/58 98 Room Air 0 DX & DISP Disposition: Discharge Departure Impression: Primary Impression: Right shoulder strain Condition: Stable Scripts Diclofenac Sodium (Voltaren Arthritis Pain) 1 % Gel..gram. 5 GM TP BID for 7 Days, #1 TUBE Prov: PRASAD WONG MD 05/17/25 Additional Instructions: FOLLOW-UP WITH PRIMARY CARE PROVIDER IN 1 TO 2 DAYS. TAKE MEDICATIONS DIRECTED HERE IN THE EMERGENCY ROOM. OKAY TO CONTINUE HOME MEDICATIONS UNLESS OTHERWISE DISCUSSED DURING YOUR VISIT IN THE EMERGENCY ROOM TODAY. RETURN TO YOUR NEAREST EMERGENCY ROOM IF SYMPTOMS WORSEN OR IF THERE IS NO IMPROVEMENT. CALL 911 IF YOU NEED IMMEDIATE ASSISTANCE. TAKE TYLENOL SSGH-TDC-CXOSWHA NEEDED AND IF NO CONTRAINDICATIONS ARE PRESENT. INCREASE ORAL HYDRATION. A WOUND CULTURE OR URINE CULTURE WAS ORDERED HERE IN THE EMERGENCY ROOM DEPARTMENT PLEASE FOLLOW-UP WITH PRIMARY CARE PROVIDER AND ADVISE THEM TO GET REPORTS FROM OUR FACILITY. IF YOU HAD ANY TENISHA WRAP/SPLINTS THAT WERE APPLIED HERE, PLEASE DO NOT REMOVE THEM UNTIL YOU SEE YOUR PRIMARY CARE OR SPECIALTY. Referrals: Referrals: VLAD HUBER MD (PCP) Time of Disposition: 13:27 PRASAD WONG MD May 17, 2025 12:30
--- NOTE | 2025-05-17 13:26 | NUR ---
RT ARM SLING APPLIED, PT TOLERATED WELL
[2025-05-17] MEDS ORDERED: DICL20GE TP (13:28)
--- NOTE | 2025-05-17 13:34 | HMCIMG ---
Examination: Right shoulder, 3 views Clinical history: Pain Comparison: None Findings: AP internally rotated, AP externally rotated, and Grashey views of the right shoulder are submitted. Acromioclavicular and glenohumeral joints are preserved. No displaced fracture. No abnormality within the visualized chest. Impression: No acute osseous abnormality. /Raphine
[2025-05-17 13:49] VITALS: BP 124/62; PULSE 62; RESP 18; TEMP 98.4; O2SAT 98
== END 2025-05-17 13:50 | disposition home or self-care (01) ==
LOC: EDH 12:03
DX: S46.911A Strain of unspecified muscle, fascia and tendon at shoulder and upper arm level, right arm, initial encounter (principal); E11.9 Type 2 diabetes mellitus without complications; E78.00 Pure hypercholesterolemia, unspecified; I10 Essential (primary) hypertension; Z79.899 Other long term (current) drug therapy; X58.XXXA Exposure to other specified factors, initial encounter; Y93.89 Activity, other specified; Y92.89 Other specified places as the place of occurrence of the external cause; Y99.8 Other external cause status
CPT/HCPCS: 99283; 73030; 96372; 93005; J1885